=== PATIENT | female | born 1940 | race Caucasian/White ===

== ENCOUNTER 2018-02-03 15:19 | Inpatient (IN) | payer MEDICARE, BC ==
[2018-02-03] MEDS: HYDROCODONE/APAP (5/325) TAB PO (19:10)
[2018-02-03 20:16] LABS: ADD MAN DIFF? NO
[2018-02-03] MEDS: SOD CHLORIDE 0.9% 500 ML IV (20:16)
[2018-02-03] MEDS: morphine 4 MG/ML VIAL IV (20:16)
[2018-02-03 20:19] LABS: WHITE BLOOD COUNT 12.6 10^3/ul (4.8-10.8)
[2018-02-03 20:19] LABS: BASOPHIL # 0.1 10^3/ul (0.0-0.1); BASOPHILS % 0.4 % (0.0-2.0); EOSINOPHILS # 0.4 10^3/ul (0.0-0.5); EOSINOPHILS % 3.2 % (0.0-7.0); HEMATOCRIT 36.5 % (37.0-47.0); HEMOGLOBIN 12.6 g/dl (12.0-16.0); LYMPHOCYTES # 0.7 10^3/ul (0.8-2.9); LYMPHOCYTES % 5.2 % (15.0-51.0); MEAN CORPUSCULAR HEMOGLOBIN 32.4 pg (29.0-33.0); MEAN CORPUSCULAR HGB CONC 34.5 g/dl (32.0-37.0); MEAN CORPUSCULAR VOLUME 93.8 fl (82.0-101.0); MEAN PLATELET VOLUME 9.6 fl (7.4-10.4); MONOCYTE # 0.7 10^3/ul (0.3-0.9); MONOCYTES % 5.2 % (0.0-11.0); NEUTROPHIL # 10.8 10^3/ul (1.6-7.5); NEUTROPHILS % 85.6 % (39.0-77.0); PLATELET COUNT 323 10^3/UL (140-415); RED BLOOD COUNT 3.89 10^6/ul (4.20-5.40); RED CELL DISTRIBUTION WIDTH 13.4 % (11.5-14.5)
[2018-02-03] MEDS ORDERED: ACETAMINOPHEN 325 MG TAB PO (20:30)
[2018-02-03] MEDS ORDERED: ONDANSETRON 4 MG INJ IV ×2 (20:30→22:00)
[2018-02-03 20:39] LABS: ANION GAP 16 (8-16); BLOOD UREA NITROGEN 21 mg/dl (7-20); CALCIUM 9.7 mg/dl (8.4-10.2); CARBON DIOXIDE 27 mmol/L (21-31); CHLORIDE 95 mmol/L (97-110); CREATININE 0.52 mg/dl (0.44-1.00); GLUCOSE 110 mg/dl (70-220); POTASSIUM 3.8 mmol/L (3.5-5.1); SODIUM 134 mmol/L (135-144)
[2018-02-03 20:41] LABS: INR 1.05; PROTIME 13.8 Sec (11.9-14.9); PT RATIO 1.1
[2018-02-03 20:59] LABS: TROPONIN-I < 0.012 ng/ml (0.00-0.12)
[2018-02-03] MEDS ORDERED: DOXYCYCLINE 100 MG TAB PO (21:30)
[2018-02-03] MEDS: DIPHTH/TET/ACEL PERTUSS (ADULT) 0.5 ML VIAL IM* (21:51)
[2018-02-03] MEDS: DOXYCYCLINE 100 MG TAB PO (21:58)
[2018-02-03] MEDS ORDERED: BISACODYL (EC) 5 MG TAB PO (22:00)
[2018-02-03] MEDS ORDERED: morphine 2 MG INJ IV (22:00)
[2018-02-03] MEDS ORDERED: NACL 0.9% 3 ML SYG IV (22:00)
[2018-02-03] MEDS: HYDROCODONE/APAP (10/325) TAB PO (22:02)
[2018-02-03 22:07] LABS: ADD UMIC NO; UR ASCORBIC ACID 40 mg/dL (NEGATIVE); UR BILIRUBIN (Dip) NEGATIVE (NEGATIVE); UR BLOOD (Dip) NEGATIVE (NEGATIVE); UR CLARITY CLEAR (CLEAR); UR COLOR STRAW (YELLOW); UR GLUCOSE (Dip) 1+ mg/dL (NEGATIVE); UR KETONES (Dip) TRACE mg/dL (NEGATIVE); UR LEUKOCYTE ESTERASE (Dip) NEGATIVE Leu/ul (NEGATIVE); UR NITRITE (Dip) NEGATIVE (NEGATIVE); UR SPECIFIC GRAVITY (Dip) 1.011 (1.003-1.030); UR TOTAL PROTEIN (Dip) NEGATIVE (NEGATIVE); UR UROBILINOGEN (Dip) NEGATIVE (NEGATIVE)
[2018-02-03] MEDS: GABAPENTIN 100 MG CAP PO (23:45)
[2018-02-03] MEDS: DIAZEPAM 5 MG TAB PO (23:45)
[2018-02-04] MEDS: ACETAMINOPHEN 325 MG TAB PO (03:42)
[2018-02-04] MEDS: DIPHENHYDRAMINE 25 MG CAP PO (03:42)
[2018-02-04 05:20] LABS: ADD MAN DIFF? NO
[2018-02-04 05:25] LABS: BASOPHILS % 0.5 % (0.0-2.0); EOSINOPHILS # 1.1 10^3/ul (0.0-0.5); HEMATOCRIT 31.7 % (37.0-47.0); HEMOGLOBIN 10.8 g/dl (12.0-16.0); LYMPHOCYTES % 12.7 % (15.0-51.0); MEAN CORPUSCULAR HEMOGLOBIN 32.1 pg (29.0-33.0); MEAN CORPUSCULAR HGB CONC 34.1 g/dl (32.0-37.0); MEAN CORPUSCULAR VOLUME 94.3 fl (82.0-101.0); MEAN PLATELET VOLUME 9.9 fl (7.4-10.4); MONOCYTE # 0.6 10^3/ul (0.3-0.9); NEUTROPHIL # 5.2 10^3/ul (1.6-7.5); NEUTROPHILS % 65.5 % (39.0-77.0); PLATELET COUNT 301 10^3/UL (140-415); RED BLOOD COUNT 3.36 10^6/ul (4.20-5.40); RED CELL DISTRIBUTION WIDTH 13.3 % (11.5-14.5)
[2018-02-04 05:43] LABS: HEMOGLOBIN A1C 5.5 % (0-5.9)
[2018-02-04 05:44] LABS: ALANINE AMINOTRANSFERASE 30 IU/L (13-69); ALBUMIN 3.2 g/dl (3.3-4.9); ALBUMIN/GLOBULIN RATIO 1.14; ALKALINE PHOSPHATASE 47 IU/L (42-121); ANION GAP 11 (8-16); ASPARTATE AMINO TRANSFERASE 22 IU/L (15-46); BILIRUBIN,INDIRECT 0.2 mg/dl (0-1.1); BILIRUBIN,TOTAL 0.2 mg/dl (0.2-1.3); BLOOD UREA NITROGEN 17 mg/dl (7-20); CALCIUM 8.9 mg/dl (8.4-10.2); CARBON DIOXIDE 27 mmol/L (21-31); CHLORIDE 100 mmol/L (97-110); CHOL/HDL RATIO 2.2 RATIO; CHOLESTEROL 131 mg/dl (100-200); CREATININE 0.48 mg/dl (0.44-1.00); GLUCOSE 93 mg/dl (70-220); HDL CHOLESTEROL 57 mg/dl (33-92); LDL CHOLESTEROL,CALCULATED 65 mg/dl; POTASSIUM 3.7 mmol/L (3.5-5.1); SODIUM 134 mmol/L (135-144); TRIGLYCERIDES 47 mg/dl (0-149)
[2018-02-04 05:57] LABS: FREE THYROXINE INDEX (Calc) 2.07 ug/ml (0.65-3.89); T3 UPTAKE 38.3 % (23.5-40.5); T4 (THYROXINE) 5.4 ug/dl (5.5-11.0)
[2018-02-04] MEDS: PANTOPRAZOLE (EC) 40 MG TAB PO (06:24)
[2018-02-04] MEDS: LORATADINE 10 MG TAB PO ×2 (09:00→13:33)
[2018-02-04] MEDS: traMADol 50 MG TAB PO ×3 (09:00→21:00)
[2018-02-04] MEDS: HYDROCODONE/APAP (5/325) TAB PO ×3 (09:11→22:56)
[2018-02-04] MEDS: PROCHLORPERAZINE 5 MG TAB PO ×4 (09:12→22:02)
[2018-02-04] MEDS: MAGNESIUM OXIDE 400 MG TAB PO ×2 (09:12→22:03)
[2018-02-04] MEDS: FERROUS SULFATE (EC) 325 MG TAB PO ×2 (09:12→22:01)
[2018-02-04] MEDS: SALMETEROL/FLUTICASONE 250/50 INHA INH (09:13)
[2018-02-04] MEDS: METOPROLOL (XL) 25 MG TAB PO ×2 (09:13→18:50)
[2018-02-04] MEDS: LISINOPRIL 10 MG TAB PO ×2 (09:13→18:49)
[2018-02-04] MEDS: COLLAGENASE 30 GM TUBE TOP (09:14)
[2018-02-04] MEDS: metroNIDAZOLE 0.75% 45 GM GEL TOP (09:14)
[2018-02-04] MEDS: DICLOFENAC SODIUM 1% GEL 100 GM TUBE TP (09:14)
[2018-02-04] MEDS: IPRATROPIUM (HFA) 12.9 GM INHALER INH ×2 (09:14→22:03)
[2018-02-04] MEDS: DOCUSATE SODIUM 100 MG CAP PO ×2 (09:21→18:52)
[2018-02-04] MEDS: GABAPENTIN 100 MG CAP PO ×3 (16:14→23:56)
[2018-02-04] MEDS: ENOXAPARIN 40 MG/0.4 ML SYG SC (16:15)
[2018-02-04] MEDS ORDERED: L ACIDOPHIL/B LACTIS/B LONGUM CAPSULE PO (17:00)
[2018-02-04] MEDS: CALCITONIN SALMON 3.7 ML NASAL SPRAY NASAL (21:00)
[2018-02-04] MEDS: PREGABALIN 25 MG CAP PO (21:00)
[2018-02-04] MEDS: MONTELUKAST 10 MG TAB PO (22:01)
[2018-02-04] MEDS: BETHANECHOL 25 MG TAB PO (22:02)
[2018-02-04] MEDS: CALCIUM/VITAMIN D (500/200) TAB PO (22:02)
[2018-02-04] MEDS: RALOXIFENE 60 MG TAB PO (22:02)
[2018-02-04] MEDS: MOMETASONE 0.24 GM INHALER INH (22:03)
[2018-02-04] MEDS: DEMECLOCYCLINE 150 MG TAB PO (23:56)
[2018-02-04] MEDS: DIAZEPAM 5 MG TAB PO (23:57)
[2018-02-05] MEDS ORDERED: GABAPENTIN 100 MG CAP PO
[2018-02-05 05:15] LABS: ANION GAP 11 (8-16); BLOOD UREA NITROGEN 15 mg/dl (7-20); CALCIUM 8.9 mg/dl (8.4-10.2); CARBON DIOXIDE 28 mmol/L (21-31); CHLORIDE 97 mmol/L (97-110); CREATININE 0.54 mg/dl (0.44-1.00); GLUCOSE 92 mg/dl (70-220); MAGNESIUM 1.6 mg/dl (1.7-2.5); PHOSPHORUS 2.8 mg/dl (2.5-4.9); POTASSIUM 3.9 mmol/L (3.5-5.1); SODIUM 132 mmol/L (135-144)
[2018-02-05] MEDS: LEVOFLOXACIN 500 MG TAB PO (06:00)
[2018-02-05] MEDS: HYDROCODONE/APAP (5/325) TAB PO ×3 (06:09→23:53)
[2018-02-05] MEDS: PANTOPRAZOLE (EC) 40 MG TAB PO (06:09)
[2018-02-05] MEDS: COLLAGENASE 30 GM TUBE TOP (09:00)
[2018-02-05] MEDS: traMADol 50 MG TAB PO ×3 (09:00→20:45)
[2018-02-05] MEDS: metroNIDAZOLE 0.75% 45 GM GEL TOP (09:00)
[2018-02-05] MEDS: DICLOFENAC SODIUM 1% GEL 100 GM TUBE TP (09:00)
[2018-02-05] MEDS: METOPROLOL (XL) 25 MG TAB PO ×2 (09:44→17:27)
[2018-02-05] MEDS: LISINOPRIL 10 MG TAB PO ×2 (09:45→17:28)
[2018-02-05] MEDS: LORATADINE 10 MG TAB PO (09:45)
[2018-02-05] MEDS: SALMETEROL/FLUTICASONE 250/50 INHA INH (09:45)
[2018-02-05] MEDS: IPRATROPIUM (HFA) 12.9 GM INHALER INH ×2 (09:45→20:42)
[2018-02-05] MEDS: LACTOBACILLUS RHAMNOSUS CAP PO (09:46)
[2018-02-05] MEDS: DEMECLOCYCLINE 150 MG TAB PO ×2 (09:46→20:48)
[2018-02-05] MEDS: PROCHLORPERAZINE 5 MG TAB PO ×4 (09:46→20:43)
[2018-02-05] MEDS: ASCORBIC ACID 500 MG TAB PO (09:47)
[2018-02-05] MEDS: MAGNESIUM OXIDE 400 MG TAB PO ×2 (09:47→19:08)
[2018-02-05] MEDS: FERROUS SULFATE (EC) 325 MG TAB PO ×2 (09:47→19:08)
[2018-02-05] MEDS: CALCIUM/VITAMIN D (500/200) TAB PO ×2 (09:47→19:08)
[2018-02-05] MEDS: BETHANECHOL 25 MG TAB PO ×3 (09:47→20:42)
[2018-02-05] MEDS: GABAPENTIN 100 MG CAP PO ×5 (09:47→23:52)
[2018-02-05] MEDS: ENOXAPARIN 40 MG/0.4 ML SYG SC (10:22)
[2018-02-05] MEDS: SODIUM CHLORIDE 1 GM TAB PO ×2 (13:50→20:42)
[2018-02-05] MEDS ORDERED: NEOMYC/POLYMYX/BACIT 0.9 GM OINT (13:52)
[2018-02-05] MEDS ORDERED: ESTRADIOL 0.05 MG/24 HR PATCH TRANSDERM (18:00)
[2018-02-05] MEDS: DOCUSATE SODIUM 100 MG CAP PO (19:08)
[2018-02-05] MEDS: MAGNESIUM SULFATE 2 GM/50 ML 50 ML IVPB (19:09)
[2018-02-05] MEDS: MOMETASONE 0.24 GM INHALER INH (20:42)
[2018-02-05] MEDS: MONTELUKAST 10 MG TAB PO (20:43)
[2018-02-05] MEDS: PREGABALIN 25 MG CAP PO (20:45)
[2018-02-05] MEDS: MEDIHONEY TOP (21:30)
[2018-02-05] MEDS: CALCITONIN SALMON 3.7 ML NASAL SPRAY NASAL (21:40)
[2018-02-05] MEDS: RALOXIFENE 60 MG TAB PO (21:59)
[2018-02-05] MEDS: DIAZEPAM 5 MG TAB PO (23:52)
[2018-02-06] MEDS: LEVOFLOXACIN 500 MG TAB PO ×2 (06:00→10:22)
[2018-02-06 06:40] LABS: ANION GAP 10 (8-16); BLOOD UREA NITROGEN 18 mg/dl (7-20); CALCIUM 8.8 mg/dl (8.4-10.2); CARBON DIOXIDE 29 mmol/L (21-31); CHLORIDE 101 mmol/L (97-110); CREATININE 0.57 mg/dl (0.44-1.00); GLUCOSE 83 mg/dl (70-220); MAGNESIUM 2.1 mg/dl (1.7-2.5); PHOSPHORUS 3.1 mg/dl (2.5-4.9); SODIUM 136 mmol/L (135-144)
[2018-02-06] MEDS: PANTOPRAZOLE (EC) 40 MG TAB PO (07:34)
[2018-02-06] MEDS: LACTOBACILLUS RHAMNOSUS CAP PO (08:36)
[2018-02-06] MEDS: GABAPENTIN 100 MG CAP PO ×4 (08:36→21:22)
[2018-02-06] MEDS: ASCORBIC ACID 500 MG TAB PO (08:36)
[2018-02-06] MEDS: FERROUS SULFATE (EC) 325 MG TAB PO ×2 (08:36→21:23)
[2018-02-06] MEDS: BETHANECHOL 25 MG TAB PO ×3 (08:37→21:22)
[2018-02-06] MEDS: CALCIUM/VITAMIN D (500/200) TAB PO ×2 (08:37→18:11)
[2018-02-06] MEDS: PROCHLORPERAZINE 5 MG TAB PO ×4 (08:37→21:23)
[2018-02-06] MEDS: SODIUM CHLORIDE 1 GM TAB PO ×3 (08:37→21:22)
[2018-02-06] MEDS: MAGNESIUM OXIDE 400 MG TAB PO ×2 (08:37→18:11)
[2018-02-06] MEDS: LORATADINE 10 MG TAB PO (08:37)
[2018-02-06] MEDS: METOPROLOL (XL) 25 MG TAB PO ×2 (08:38→18:12)
[2018-02-06] MEDS: SALMETEROL/FLUTICASONE 250/50 INHA INH (08:38)
[2018-02-06] MEDS: LISINOPRIL 10 MG TAB PO ×2 (08:38→18:12)
[2018-02-06] MEDS: IPRATROPIUM (HFA) 12.9 GM INHALER INH ×2 (08:40→21:23)
[2018-02-06] MEDS: DEMECLOCYCLINE 150 MG TAB PO ×2 (08:46→21:21)
[2018-02-06] MEDS: COLLAGENASE 30 GM TUBE TOP (09:00)
[2018-02-06] MEDS: metroNIDAZOLE 0.75% 45 GM GEL TOP (09:00)
[2018-02-06] MEDS: traMADol 50 MG TAB PO ×3 (09:00→21:00)
[2018-02-06] MEDS: MEDIHONEY TOP (09:00)
[2018-02-06] MEDS: DICLOFENAC SODIUM 1% GEL 100 GM TUBE TP (09:00)
[2018-02-06] MEDS: ENOXAPARIN 40 MG/0.4 ML SYG SC (09:38)
[2018-02-06] MEDS: HYDROCODONE/APAP (5/325) TAB PO (14:40)
[2018-02-06] MEDS: DOCUSATE SODIUM 100 MG CAP PO (18:11)
[2018-02-06] MEDS: PREGABALIN 25 MG CAP PO (21:00)
[2018-02-06] MEDS: ESTRADIOL TRANSDERM (21:18)
[2018-02-06] MEDS: RALOXIFENE 60 MG TAB PO (21:22)
[2018-02-06] MEDS: MONTELUKAST 10 MG TAB PO (21:22)
[2018-02-06] MEDS: MOMETASONE 0.24 GM INHALER INH (21:23)
[2018-02-07] MEDS: DIAZEPAM 5 MG TAB PO (00:10)
[2018-02-07] MEDS: GABAPENTIN 100 MG CAP PO ×5 (00:10→21:03)
[2018-02-07] MEDS: CALCITONIN SALMON 3.7 ML NASAL SPRAY NASAL ×2 (00:10→21:06)
[2018-02-07] MEDS: HYDROCODONE/APAP (5/325) TAB PO ×3 (00:18→23:27)
[2018-02-07] MEDS: ACETAMINOPHEN 325 MG TAB PO (01:18)
[2018-02-07] MEDS: DIPHENHYDRAMINE 25 MG CAP PO (01:19)
[2018-02-07] MEDS: PANTOPRAZOLE (EC) 40 MG TAB PO (05:17)
[2018-02-07] MEDS: COLLAGENASE 30 GM TUBE TOP ×3 (09:00→15:10)
[2018-02-07] MEDS: DICLOFENAC SODIUM 1% GEL 100 GM TUBE TP ×3 (09:00→15:10)
[2018-02-07] MEDS: traMADol 50 MG TAB PO ×3 (09:00→21:00)
[2018-02-07] MEDS: LISINOPRIL 10 MG TAB PO ×2 (09:12→18:05)
[2018-02-07] MEDS: METOPROLOL (XL) 25 MG TAB PO ×2 (09:13→18:05)
[2018-02-07] MEDS: LACTOBACILLUS RHAMNOSUS CAP PO (09:14)
[2018-02-07] MEDS: ASCORBIC ACID 500 MG TAB PO ×2 (09:14→21:05)
[2018-02-07] MEDS: PROCHLORPERAZINE 5 MG TAB PO ×4 (09:14→21:05)
[2018-02-07] MEDS: LORATADINE 10 MG TAB PO (09:14)
[2018-02-07] MEDS: SODIUM CHLORIDE 1 GM TAB PO ×3 (09:14→18:04)
[2018-02-07] MEDS: FERROUS SULFATE (EC) 325 MG TAB PO ×2 (09:15→18:03)
[2018-02-07] MEDS: MAGNESIUM OXIDE 400 MG TAB PO ×2 (09:15→18:02)
[2018-02-07] MEDS: DEMECLOCYCLINE 150 MG TAB PO ×2 (09:15→21:04)
[2018-02-07] MEDS: BETHANECHOL 25 MG TAB PO ×3 (09:16→21:04)
[2018-02-07] MEDS: CALCIUM/VITAMIN D (500/200) TAB PO ×2 (09:16→18:04)
[2018-02-07] MEDS: IPRATROPIUM (HFA) 12.9 GM INHALER INH ×3 (09:17→21:06)
[2018-02-07] MEDS: SALMETEROL/FLUTICASONE 250/50 INHA INH (09:17)
[2018-02-07] MEDS: ENOXAPARIN 40 MG/0.4 ML SYG SC (09:21)
[2018-02-07] MEDS: DOCUSATE SODIUM 100 MG CAP PO ×2 (09:45→18:04)
[2018-02-07] MEDS: LEVOFLOXACIN 500 MG TAB PO (10:41)
[2018-02-07] MEDS: MEDIHONEY TOP (13:50)
[2018-02-07] MEDS: metroNIDAZOLE 0.75% 45 GM GEL TOP (13:51)
[2018-02-07] MEDS: PREGABALIN 25 MG CAP PO (21:00)
[2018-02-07] MEDS: RALOXIFENE 60 MG TAB PO (21:04)
[2018-02-07] MEDS: MOMETASONE 0.24 GM INHALER INH (21:06)
[2018-02-07] MEDS: MONTELUKAST 10 MG TAB PO (21:08)
[2018-02-08] MEDS: DIAZEPAM 5 MG TAB PO ×2 (00:07→23:38)
[2018-02-08] MEDS: GABAPENTIN 100 MG CAP PO ×6 (00:08→23:37)
[2018-02-08] MEDS: DIPHENHYDRAMINE 25 MG CAP PO (03:42)
[2018-02-08] MEDS: ACETAMINOPHEN 325 MG TAB PO ×2 (03:42→21:28)
[2018-02-08] MEDS: PANTOPRAZOLE (EC) 40 MG TAB PO (06:24)
[2018-02-08] MEDS: LEVOFLOXACIN 500 MG TAB PO (06:24)
[2018-02-08] MEDS: IPRATROPIUM (HFA) 12.9 GM INHALER INH ×3 (06:24→21:29)
[2018-02-08] MEDS ORDERED: ALBUMIN HUMAN 25% 100 ML INJ (07:00)
[2018-02-08] MEDS: MAGNESIUM OXIDE 400 MG TAB PO ×2 (09:00→18:48)
[2018-02-08] MEDS: ENOXAPARIN 40 MG/0.4 ML SYG SC (09:00)
[2018-02-08] MEDS: FERROUS SULFATE (EC) 325 MG TAB PO ×2 (09:00→18:47)
[2018-02-08] MEDS: metroNIDAZOLE 0.75% 45 GM GEL TOP (09:00)
[2018-02-08] MEDS: SODIUM CHLORIDE 1 GM TAB PO ×3 (09:00→18:47)
[2018-02-08] MEDS: ASCORBIC ACID 500 MG TAB PO ×2 (09:00→18:47)
[2018-02-08] MEDS: DICLOFENAC SODIUM 1% GEL 100 GM TUBE TP (09:00)
[2018-02-08] MEDS: CALCIUM/VITAMIN D (500/200) TAB PO ×2 (09:00→18:48)
[2018-02-08] MEDS: traMADol 50 MG TAB PO ×3 (09:00→21:00)
[2018-02-08] MEDS: LACTOBACILLUS RHAMNOSUS CAP PO (09:00)
[2018-02-08] MEDS: COLLAGENASE 30 GM TUBE TOP (09:00)
[2018-02-08] MEDS: SALMETEROL/FLUTICASONE 250/50 INHA INH (09:01)
[2018-02-08] MEDS: LISINOPRIL 10 MG TAB PO ×2 (09:02→18:09)
[2018-02-08] MEDS: METOPROLOL (XL) 25 MG TAB PO ×2 (09:02→18:09)
[2018-02-08] MEDS: LORATADINE 10 MG TAB PO (09:03)
[2018-02-08] MEDS: BETHANECHOL 25 MG TAB PO ×3 (09:04→21:04)
[2018-02-08] MEDS: DEMECLOCYCLINE 150 MG TAB PO ×2 (09:05→21:02)
[2018-02-08] MEDS: PROCHLORPERAZINE 5 MG TAB PO ×4 (09:08→21:03)
[2018-02-08] MEDS: MEDIHONEY TOP (09:15)
[2018-02-08 09:22] LABS: ADD MAN DIFF? NO
[2018-02-08 09:29] LABS: WHITE BLOOD COUNT 6.2 10^3/ul (4.8-10.8)
[2018-02-08 09:29] LABS: BASOPHIL # 0.1 10^3/ul (0.0-0.1); EOSINOPHILS % 15.9 % (0.0-7.0); HEMATOCRIT 34.2 % (37.0-47.0); HEMOGLOBIN 11.5 g/dl (12.0-16.0); LYMPHOCYTES % 16.7 % (15.0-51.0); MEAN CORPUSCULAR HEMOGLOBIN 32.1 pg (29.0-33.0); MEAN CORPUSCULAR HGB CONC 33.6 g/dl (32.0-37.0); MEAN CORPUSCULAR VOLUME 95.5 fl (82.0-101.0); MEAN PLATELET VOLUME 9.4 fl (7.4-10.4); MONOCYTE # 0.5 10^3/ul (0.3-0.9); MONOCYTES % 8.7 % (0.0-11.0); NEUTROPHIL # 3.5 10^3/ul (1.6-7.5); NEUTROPHILS % 56.9 % (39.0-77.0); PLATELET COUNT 385 10^3/UL (140-415); RED BLOOD COUNT 3.58 10^6/ul (4.20-5.40); RED CELL DISTRIBUTION WIDTH 13.6 % (11.5-14.5)
[2018-02-08 09:42] LABS: ANION GAP 11 (8-16); BLOOD UREA NITROGEN 24 mg/dl (7-20); CALCIUM 8.7 mg/dl (8.4-10.2); CARBON DIOXIDE 29 mmol/L (21-31); CHLORIDE 105 mmol/L (97-110); CREATININE 0.51 mg/dl (0.44-1.00); GLUCOSE 89 mg/dl (70-220); POTASSIUM 4.3 mmol/L (3.5-5.1); SODIUM 141 mmol/L (135-144)
[2018-02-08] MEDS ORDERED: morphine SULFATE/PF (10 MG/10 ML) INJ (11:16)
[2018-02-08] MEDS ORDERED: MIDAZOLAM 1 MG/ML 2 ML INJ (11:16)
[2018-02-08] MEDS ORDERED: PROPOFOL 20 ML (11:17)
[2018-02-08] MEDS ORDERED: FENTAnyl 50 MCG/ML VIAL (11:17)
[2018-02-08] MEDS ORDERED: SUCCINYLCHOLINE CHLORIDE 100 MG/5 ML SYG IV (11:18)
[2018-02-08] MEDS ORDERED: LIDOCAINE 2% (SDV) 5 ML INJ (11:18)
[2018-02-08] MEDS ORDERED: ROCURONIUM 50 MG INJ (11:18)
[2018-02-08] MEDS ORDERED: ACETAMINOPHEN 1000MG/100ML IV 100 ML (11:18)
[2018-02-08] MEDS ORDERED: CEFAZOLIN 1 GM INJ (11:21)
[2018-02-08] MEDS: POLYMYXIN/BACITRACIN 1L IRRIG (11:36)
[2018-02-08] MEDS ORDERED: CEFAZOLIN 1 GM/50 ML (PMX) 50 ML IVPB (13:00)
[2018-02-08] MEDS ORDERED: NACL 0.9% 3 ML SYG IV (13:00)
[2018-02-08] MEDS ORDERED: morphine 2 MG INJ IV (13:00)
[2018-02-08] MEDS ORDERED: HYDROCODONE/APAP (5/325) TAB PO (13:00)
[2018-02-08] MEDS ORDERED: METOPROLOL 5 MG INJ (13:13)
[2018-02-08] MEDS ORDERED: METOCLOPRAMIDE 10 MG INJ IV (13:30)
[2018-02-08] MEDS ORDERED: MEPERIDINE 25 MG INJ IV (13:30)
[2018-02-08] MEDS ORDERED: FENTAnyl 50 MCG/ML VIAL IV ×2 (13:30)
[2018-02-08] MEDS ORDERED: LABETALOL HCL 20MG INJ IV (13:30)
[2018-02-08] MEDS ORDERED: HYDROmorphONE (0.2 MG/ML) 10ML SYG IV ×3 (13:30)
[2018-02-08] MEDS ORDERED: ONDANSETRON 4 MG INJ IV (13:30)
[2018-02-08] MEDS ORDERED: hydrALAzine 20 MG INJ IV (13:30)
[2018-02-08] MEDS ORDERED: DIPHENHYDRAMINE 50 MG INJ IV (13:30)
[2018-02-08] MEDS: METOPROLOL 5 MG INJ IV (13:35)
[2018-02-08] MEDS: DEXTROSE 5%-0.45% NACL 1,000 ML IV (14:31)
[2018-02-08 14:38] LABS: HEMATOCRIT 28.7 % (37.0-47.0); HEMOGLOBIN 9.6 g/dl (12.0-16.0)
[2018-02-08 14:55] LABS: ANION GAP 16 (8-16); BLOOD UREA NITROGEN 22 mg/dl (7-20); CALCIUM 11.6 mg/dl (8.4-10.2); CARBON DIOXIDE 26 mmol/L (21-31); CHLORIDE 105 mmol/L (97-110); CREATININE 0.55 mg/dl (0.44-1.00); GLUCOSE 90 mg/dl (70-220); POTASSIUM 4.3 mmol/L (3.5-5.1); SODIUM 143 mmol/L (135-144)
[2018-02-08] MEDS: RALOXIFENE 60 MG TAB PO (18:09)
[2018-02-08] MEDS: DOCUSATE SODIUM 100 MG CAP PO (18:10)
[2018-02-08] MEDS: CEFAZOLIN 1 GM/50 ML (PMX) 50 ML IVPB (20:13)
[2018-02-08] MEDS: hydrALAzine 20 MG INJ IV (20:16)
[2018-02-08] MEDS: PREGABALIN 25 MG CAP PO (21:00)
[2018-02-08] MEDS: MOMETASONE 0.24 GM INHALER INH (21:02)
[2018-02-08] MEDS: MONTELUKAST 10 MG TAB PO (21:02)
[2018-02-08] MEDS: CALCITONIN SALMON 3.7 ML NASAL SPRAY NASAL (21:02)
[2018-02-09] MEDS: DEXTROSE 5%-0.45% NACL 1,000 ML IV ×2 (03:00→04:38)
[2018-02-09] MEDS: CEFAZOLIN 1 GM/50 ML (PMX) 50 ML IVPB ×2 (03:13→11:12)
[2018-02-09] MEDS: LEVOFLOXACIN 500 MG TAB PO (06:25)
[2018-02-09] MEDS: PANTOPRAZOLE (EC) 40 MG TAB PO (06:25)
[2018-02-09] MEDS: IPRATROPIUM (HFA) 12.9 GM INHALER INH ×3 (06:25→21:52)
[2018-02-09] MEDS: traMADol 50 MG TAB PO ×3 (08:06→21:00)
[2018-02-09] MEDS: COLLAGENASE 30 GM TUBE TOP (08:07)
[2018-02-09] MEDS: metroNIDAZOLE 0.75% 45 GM GEL TOP (08:07)
[2018-02-09] MEDS: DICLOFENAC SODIUM 1% GEL 100 GM TUBE TP (08:07)
[2018-02-09] MEDS: LISINOPRIL 10 MG TAB PO ×2 (08:23→17:33)
[2018-02-09] MEDS: FERROUS SULFATE (EC) 325 MG TAB PO ×2 (08:23→17:32)
[2018-02-09] MEDS: ASCORBIC ACID 500 MG TAB PO ×2 (08:23→17:32)
[2018-02-09] MEDS: LACTOBACILLUS RHAMNOSUS CAP PO (08:24)
[2018-02-09] MEDS: CALCIUM/VITAMIN D (500/200) TAB PO ×2 (08:24→17:33)
[2018-02-09] MEDS: SODIUM CHLORIDE 1 GM TAB PO ×3 (08:25→17:33)
[2018-02-09] MEDS: BETHANECHOL 25 MG TAB PO ×3 (08:25→21:51)
[2018-02-09] MEDS: GABAPENTIN 100 MG CAP PO ×4 (08:25→21:50)
[2018-02-09] MEDS: DEMECLOCYCLINE 150 MG TAB PO ×2 (08:25→21:48)
[2018-02-09] MEDS: LORATADINE 10 MG TAB PO (08:25)
[2018-02-09] MEDS: MAGNESIUM OXIDE 400 MG TAB PO ×2 (08:26→17:33)
[2018-02-09] MEDS: SALMETEROL/FLUTICASONE 250/50 INHA INH (08:26)
[2018-02-09] MEDS: METOPROLOL (XL) 25 MG TAB PO ×2 (08:26→17:34)
[2018-02-09] MEDS: MEDIHONEY TOP (08:27)
[2018-02-09] MEDS: ACETAMINOPHEN 325 MG TAB PO ×2 (08:27→17:39)
[2018-02-09] MEDS: PROCHLORPERAZINE 5 MG TAB PO ×4 (08:29→21:48)
[2018-02-09] MEDS: ENOXAPARIN 40 MG/0.4 ML SYG SC (08:30)
[2018-02-09 11:52] LABS: ADD MAN DIFF? NO
[2018-02-09 11:55] LABS: BASOPHILS % 0.4 % (0.0-2.0); EOSINOPHILS # 0.4 10^3/ul (0.0-0.5); EOSINOPHILS % 3.9 % (0.0-7.0); HEMATOCRIT 28.4 % (37.0-47.0); HEMOGLOBIN 9.8 g/dl (12.0-16.0); LYMPHOCYTES # 0.8 10^3/ul (0.8-2.9); MEAN CORPUSCULAR HGB CONC 34.5 g/dl (32.0-37.0); MEAN CORPUSCULAR VOLUME 92.8 fl (82.0-101.0); MEAN PLATELET VOLUME 9.4 fl (7.4-10.4); MONOCYTE # 0.9 10^3/ul (0.3-0.9); MONOCYTES % 8.9 % (0.0-11.0); NEUTROPHIL # 8.2 10^3/ul (1.6-7.5); NEUTROPHILS % 78.2 % (39.0-77.0); PLATELET COUNT 345 10^3/UL (140-415); RED BLOOD COUNT 3.06 10^6/ul (4.20-5.40); RED CELL DISTRIBUTION WIDTH 13.5 % (11.5-14.5)
[2018-02-09 11:55] LABS: WHITE BLOOD COUNT 10.4 10^3/ul (4.8-10.8)
[2018-02-09] MEDS: DOCUSATE SODIUM 100 MG CAP PO (17:31)
[2018-02-09] MEDS: RALOXIFENE 60 MG TAB PO (17:34)
[2018-02-09] MEDS: PREGABALIN 25 MG CAP PO (21:00)
[2018-02-09] MEDS: MOMETASONE 0.24 GM INHALER INH (21:47)
[2018-02-09] MEDS: CALCITONIN SALMON 3.7 ML NASAL SPRAY NASAL (21:48)
[2018-02-09] MEDS: ATORVASTATIN 40 MG TAB PO (21:49)
[2018-02-09] MEDS: ESTRADIOL TRANSDERM (21:51)
[2018-02-09] MEDS: MONTELUKAST 10 MG TAB PO (21:52)
[2018-02-10] MEDS: GABAPENTIN 100 MG CAP PO ×5 (00:01→21:34)
[2018-02-10] MEDS: DIAZEPAM 5 MG TAB PO (00:02)
[2018-02-10] MEDS: PANTOPRAZOLE (EC) 40 MG TAB PO (06:28)
[2018-02-10] MEDS: LEVOFLOXACIN 500 MG TAB PO (06:28)
[2018-02-10] MEDS: IPRATROPIUM (HFA) 12.9 GM INHALER INH ×3 (06:28→21:35)
[2018-02-10] MEDS: DEMECLOCYCLINE 150 MG TAB PO ×2 (08:19→18:32)
[2018-02-10] MEDS: LACTOBACILLUS RHAMNOSUS CAP PO (08:19)
[2018-02-10] MEDS: ASCORBIC ACID 500 MG TAB PO ×2 (08:20→21:35)
[2018-02-10] MEDS: ASPIRIN 81 MG TAB PO (08:20)
[2018-02-10] MEDS: FERROUS SULFATE (EC) 325 MG TAB PO ×2 (08:20→18:32)
[2018-02-10] MEDS: MAGNESIUM OXIDE 400 MG TAB PO ×2 (08:20→18:32)
[2018-02-10] MEDS: CALCIUM/VITAMIN D (500/200) TAB PO ×2 (08:20→18:33)
[2018-02-10] MEDS: BETHANECHOL 25 MG TAB PO ×3 (08:21→21:35)
[2018-02-10] MEDS: LORATADINE 10 MG TAB PO (08:21)
[2018-02-10] MEDS: SODIUM CHLORIDE 1 GM TAB PO ×3 (08:21→18:23)
[2018-02-10] MEDS: METOPROLOL (XL) 25 MG TAB PO ×2 (08:21→18:19)
[2018-02-10] MEDS: LISINOPRIL 10 MG TAB PO ×2 (08:22→18:19)
[2018-02-10] MEDS: SALMETEROL/FLUTICASONE 250/50 INHA INH (08:22)
[2018-02-10] MEDS: COLLAGENASE 30 GM TUBE TOP (08:23)
[2018-02-10] MEDS: PROCHLORPERAZINE 5 MG TAB PO ×4 (08:23→21:33)
[2018-02-10] MEDS: DICLOFENAC SODIUM 1% GEL 100 GM TUBE TP (08:23)
[2018-02-10] MEDS: MEDIHONEY TOP (08:23)
[2018-02-10] MEDS: metroNIDAZOLE 0.75% 45 GM GEL TOP (08:23)
[2018-02-10] MEDS: HYDROCODONE/APAP (5/325) TAB PO ×2 (08:24→13:28)
[2018-02-10] MEDS: traMADol 50 MG TAB PO ×3 (08:24→21:00)
[2018-02-10] MEDS: ENOXAPARIN 40 MG/0.4 ML SYG SC (08:27)
[2018-02-10 09:28] LABS: ADD MAN DIFF? NO
[2018-02-10 09:44] LABS: BASOPHILS % 0.3 % (0.0-2.0); EOSINOPHILS # 0.4 10^3/ul (0.0-0.5); EOSINOPHILS % 4.2 % (0.0-7.0); LYMPHOCYTES # 0.9 10^3/ul (0.8-2.9); LYMPHOCYTES % 8.4 % (15.0-51.0); MEAN CORPUSCULAR HEMOGLOBIN 31.9 pg (29.0-33.0); MEAN CORPUSCULAR HGB CONC 34.5 g/dl (32.0-37.0); MEAN CORPUSCULAR VOLUME 92.7 fl (82.0-101.0); MEAN PLATELET VOLUME 9.3 fl (7.4-10.4); MONOCYTE # 0.9 10^3/ul (0.3-0.9); MONOCYTES % 8.8 % (0.0-11.0); NEUTROPHILS % 77.2 % (39.0-77.0); PLATELET COUNT 383 10^3/UL (140-415); RED BLOOD COUNT 3.13 10^6/ul (4.20-5.40); RED CELL DISTRIBUTION WIDTH 13.4 % (11.5-14.5)
[2018-02-10 09:44] LABS: WHITE BLOOD COUNT 10.3 10^3/ul (4.8-10.8)
[2018-02-10 10:00] LABS: ANION GAP 15 (8-16); BLOOD UREA NITROGEN 19 mg/dl (7-20); CARBON DIOXIDE 25 mmol/L (21-31); CHLORIDE 99 mmol/L (97-110); CREATININE 0.46 mg/dl (0.44-1.00); GLUCOSE 130 mg/dl (70-220); MAGNESIUM 1.5 mg/dl (1.7-2.5); POTASSIUM 3.8 mmol/L (3.5-5.1); SODIUM 135 mmol/L (135-144)
[2018-02-10] MEDS: MAGNESIUM SULFATE 2 GM/50 ML 50 ML IVPB (13:46)
[2018-02-10] MEDS: DOCUSATE SODIUM 100 MG CAP PO (18:18)
[2018-02-10] MEDS: RALOXIFENE 60 MG TAB PO (18:19)
[2018-02-10] MEDS: CALCITONIN SALMON 3.7 ML NASAL SPRAY NASAL (21:00)
[2018-02-10] MEDS: PREGABALIN 25 MG CAP PO (21:00)
[2018-02-10] MEDS: MOMETASONE 0.24 GM INHALER INH (21:32)
[2018-02-10] MEDS: ATORVASTATIN 40 MG TAB PO (21:33)
[2018-02-10] MEDS: MONTELUKAST 10 MG TAB PO (21:34)
[2018-02-11] MEDS: GABAPENTIN 100 MG CAP PO ×5 (00:14→20:13)
[2018-02-11] MEDS: DIAZEPAM 5 MG TAB PO ×2 (00:15→21:00)
[2018-02-11] MEDS: HYDROCODONE/APAP (5/325) TAB PO ×2 (04:45→10:31)
[2018-02-11] MEDS: LEVOFLOXACIN 500 MG TAB PO (06:34)
[2018-02-11] MEDS: IPRATROPIUM (HFA) 12.9 GM INHALER INH ×3 (06:34→22:00)
[2018-02-11] MEDS: PANTOPRAZOLE (EC) 40 MG TAB PO (06:34)
[2018-02-11] MEDS: traMADol 50 MG TAB PO ×3 (09:00→20:14)
[2018-02-11] MEDS: metroNIDAZOLE 0.75% 45 GM GEL TOP (09:00)
[2018-02-11] MEDS: COLLAGENASE 30 GM TUBE TOP (09:00)
[2018-02-11] MEDS: DICLOFENAC SODIUM 1% GEL 100 GM TUBE TP (09:00)
[2018-02-11] MEDS: ASCORBIC ACID 500 MG TAB PO ×2 (09:13→20:11)
[2018-02-11] MEDS: SALMETEROL/FLUTICASONE 250/50 INHA INH (09:13)
[2018-02-11] MEDS: CALCIUM/VITAMIN D (500/200) TAB PO ×2 (09:13→20:12)
[2018-02-11] MEDS: FERROUS SULFATE (EC) 325 MG TAB PO ×2 (09:13→20:11)
[2018-02-11] MEDS: SODIUM CHLORIDE 1 GM TAB PO ×3 (09:13→20:12)
[2018-02-11] MEDS: BETHANECHOL 25 MG TAB PO ×3 (09:14→20:13)
[2018-02-11] MEDS: MAGNESIUM OXIDE 400 MG TAB PO ×2 (09:14→20:13)
[2018-02-11] MEDS: PROCHLORPERAZINE 5 MG TAB PO ×4 (09:15→20:12)
[2018-02-11] MEDS: METOPROLOL (XL) 25 MG TAB PO ×2 (09:15→18:05)
[2018-02-11] MEDS: LISINOPRIL 10 MG TAB PO ×2 (09:15→18:05)
[2018-02-11] MEDS: ASPIRIN 81 MG TAB PO (09:16)
[2018-02-11] MEDS: LACTOBACILLUS RHAMNOSUS CAP PO (09:16)
[2018-02-11] MEDS: LORATADINE 10 MG TAB PO (09:16)
[2018-02-11] MEDS: DEMECLOCYCLINE 150 MG TAB PO ×2 (09:17→20:12)
[2018-02-11] MEDS: ENOXAPARIN 40 MG/0.4 ML SYG SC (09:20)
[2018-02-11] MEDS: MEDIHONEY TOP (09:21)
[2018-02-11] MEDS: CLOPIDOGREL 75 MG TAB PO (12:00)
[2018-02-11 13:40] LABS: ANION GAP 14 (8-16); BLOOD UREA NITROGEN 22 mg/dl (7-20); CALCIUM 8.7 mg/dl (8.4-10.2); CARBON DIOXIDE 25 mmol/L (21-31); CHLORIDE 102 mmol/L (97-110); CREATININE 0.55 mg/dl (0.44-1.00); GLUCOSE 96 mg/dl (70-220); MAGNESIUM 2.1 mg/dl (1.7-2.5); PHOSPHORUS 2.8 mg/dl (2.5-4.9); POTASSIUM 3.9 mmol/L (3.5-5.1); SODIUM 137 mmol/L (135-144)
[2018-02-11] MEDS: RALOXIFENE 60 MG TAB PO (18:09)
[2018-02-11] MEDS: DOCUSATE SODIUM 100 MG CAP PO (18:09)
[2018-02-11] MEDS: MONTELUKAST 10 MG TAB PO (20:11)
[2018-02-11] MEDS: MOMETASONE 0.24 GM INHALER INH (20:13)
[2018-02-11] MEDS: PREGABALIN 25 MG CAP PO (20:18)
[2018-02-11] MEDS: CALCITONIN SALMON 3.7 ML NASAL SPRAY NASAL (20:27)
[2018-02-12] MEDS: DIAZEPAM 5 MG TAB PO (00:26)
[2018-02-12] MEDS: GABAPENTIN 100 MG CAP PO ×2 (00:26→09:00)
[2018-02-12] MEDS: IPRATROPIUM (HFA) 12.9 GM INHALER INH ×2 (00:26→06:00)
[2018-02-12] MEDS: PANTOPRAZOLE (EC) 40 MG TAB PO (06:00)
[2018-02-12] MEDS: CLOPIDOGREL 75 MG TAB PO (08:58)
[2018-02-12] MEDS: LORATADINE 10 MG TAB PO (08:58)
[2018-02-12] MEDS: HYDROCODONE/APAP (5/325) TAB PO (08:59)
[2018-02-12] MEDS: SODIUM CHLORIDE 1 GM TAB PO (08:59)
[2018-02-12] MEDS: DEMECLOCYCLINE 150 MG TAB PO (08:59)
[2018-02-12] MEDS: LISINOPRIL 10 MG TAB PO (08:59)
[2018-02-12] MEDS: FERROUS SULFATE (EC) 325 MG TAB PO (08:59)
[2018-02-12] MEDS: COLLAGENASE 30 GM TUBE TOP (09:00)
[2018-02-12] MEDS: metroNIDAZOLE 0.75% 45 GM GEL TOP (09:00)
[2018-02-12] MEDS: traMADol 50 MG TAB PO (09:00)
[2018-02-12] MEDS: ASCORBIC ACID 500 MG TAB PO (09:00)
[2018-02-12] MEDS: DICLOFENAC SODIUM 1% GEL 100 GM TUBE TP (09:00)
[2018-02-12] MEDS: ASPIRIN 81 MG TAB PO (09:00)
[2018-02-12] MEDS: CALCIUM/VITAMIN D (500/200) TAB PO (09:01)
[2018-02-12] MEDS: PROCHLORPERAZINE 5 MG TAB PO (09:01)
[2018-02-12] MEDS: BETHANECHOL 25 MG TAB PO (09:01)
[2018-02-12] MEDS: MAGNESIUM OXIDE 400 MG TAB PO (09:01)
[2018-02-12] MEDS: LACTOBACILLUS RHAMNOSUS CAP PO (09:01)
[2018-02-12] MEDS: SALMETEROL/FLUTICASONE 250/50 INHA INH (09:02)
[2018-02-12] MEDS: MEDIHONEY TOP (09:03)
[2018-02-12] MEDS: METOPROLOL (XL) 25 MG TAB PO (09:07)
== END 2018-02-12 12:35 | DRG 469 ==
LOC: FTE 15:19 → MS1 20:11
PROC: 0HQGXZZ Repair Left Hand Skin, External Approach (ICD-10-PCS; principal; 2018-02-08 10:41)
PROC: 0SRS01Z Replacement of Left Hip Joint, Femoral Surface with Metal Synthetic Substitute, Open Approach (ICD-10-PCS; 2018-02-08 10:41)
DX: S72.012A Unspecified intracapsular fracture of left femur, initial encounter for closed fracture (principal); I63.8 Other cerebral infarction; E22.2 Syndrome of inappropriate secretion of antidiuretic hormone; E87.1 Hypo-osmolality and hyponatremia; I69.954 Hemiplegia and hemiparesis following unspecified cerebrovascular disease affecting left non-dominant side; S61.412A Laceration without foreign body of left hand, initial encounter; J44.9 Chronic obstructive pulmonary disease, unspecified; D64.9 Anemia, unspecified; J45.909 Unspecified asthma, uncomplicated; K40.90 Unilateral inguinal hernia, without obstruction or gangrene, not specified as recurrent; E83.42 Hypomagnesemia; I10 Essential (primary) hypertension; M19.90 Unspecified osteoarthritis, unspecified site; W01.0XXA Fall on same level from slipping, tripping and stumbling without subsequent striking against object, initial encounter; M81.0 Age-related osteoporosis without current pathological fracture; Z90.710 Acquired absence of both cervix and uterus; M43.27 Fusion of spine, lumbosacral region; Z87.81 Personal history of (healed) traumatic fracture
CPT/HCPCS: 70450; 71045; 72170; 72192; 73130-LT; 73510; 80048; 80053; 80061; 81003; 83036; 83735; 84100; 84436; 84443; 84479; 84484; 85014; 85018; 85025; 85610; 85730; 86850; 86900; 86901; 86920; 88305; 88311; 90471; 90715; 93005; 93306; 93880; 97110; 97116; 97162; 97530; 99285-25

== ENCOUNTER 2018-02-12 12:30 | Inpatient (IN) | payer MEDICARE, BC ==
[2018-02-12] MEDS ORDERED: ACETAMINOPHEN 325 MG TAB PO (15:30)
[2018-02-12] MEDS ORDERED: morphine 2 MG INJ IV (16:00)
[2018-02-12] MEDS ORDERED: ONDANSETRON 4 MG INJ IV (16:00)
[2018-02-12] MEDS: GABAPENTIN 100 MG CAP PO ×3 (17:57→23:09)
[2018-02-12] MEDS: METOPROLOL (XL) 25 MG TAB PO (17:57)
[2018-02-12] MEDS: LISINOPRIL 10 MG TAB PO (17:57)
[2018-02-12] MEDS: RALOXIFENE 60 MG TAB PO (18:10)
[2018-02-12] MEDS: DEMECLOCYCLINE 150 MG TAB PO (21:16)
[2018-02-12] MEDS: ASCORBIC ACID 500 MG TAB PO (21:16)
[2018-02-12] MEDS: SENNA TAB PO (21:16)
[2018-02-12] MEDS: MONTELUKAST 10 MG TAB PO (21:16)
[2018-02-12] MEDS: FERROUS SULFATE (EC) 325 MG TAB PO (21:16)
[2018-02-12] MEDS: CALCIUM/VITAMIN D (500/200) TAB PO (21:16)
[2018-02-12] MEDS: MOMETASONE 0.24 GM INHALER INH (21:17)
[2018-02-12] MEDS: DOCUSATE SODIUM 100 MG CAP PO (21:25)
[2018-02-12] MEDS: DIAZEPAM 5 MG TAB PO (23:09)
[2018-02-12] MEDS: BETHANECHOL 25 MG TAB PO (23:21)
[2018-02-13 02:20] LABS: ADD UMIC YES; UR ASCORBIC ACID 40 mg/dL (NEGATIVE); UR BACTERIA MODERATE /HPF (NONE SEEN); UR BILIRUBIN (Dip) NEGATIVE (NEGATIVE); UR BLOOD (Dip) NEGATIVE (NEGATIVE); UR CLARITY SLIGHTLY CLOUDY (CLEAR); UR COLOR YELLOW (YELLOW); UR GLUCOSE (Dip) NEGATIVE (NEGATIVE); UR KETONES (Dip) NEGATIVE (NEGATIVE); UR LEUKOCYTE ESTERASE (Dip) 1+ Leu/ul (NEGATIVE); UR NITRITE (Dip) NEGATIVE (NEGATIVE); UR RBC 1 /HPF (0-5); UR SPECIFIC GRAVITY (Dip) 1.016 (1.003-1.030); UR SQUAMOUS EPITHELIAL CELL FEW /HPF (FEW); UR TOTAL PROTEIN (Dip) 1+ mg/dl (NEGATIVE); UR UROBILINOGEN (Dip) NEGATIVE (NEGATIVE); UR WBC 4 /HPF (0-5)
[2018-02-13 06:13] LABS: ADD MAN DIFF? NO
[2018-02-13 06:18] LABS: BASOPHIL # 0.1 10^3/ul (0.0-0.1); BASOPHILS % 0.7 % (0.0-2.0); EOSINOPHILS # 0.7 10^3/ul (0.0-0.5); EOSINOPHILS % 8.9 % (0.0-7.0); HEMATOCRIT 26.9 % (37.0-47.0); HEMOGLOBIN 9.1 g/dl (12.0-16.0); LYMPHOCYTES # 1.1 10^3/ul (0.8-2.9); LYMPHOCYTES % 14.5 % (15.0-51.0); MEAN CORPUSCULAR HEMOGLOBIN 31.7 pg (29.0-33.0); MEAN CORPUSCULAR HGB CONC 33.8 g/dl (32.0-37.0); MEAN CORPUSCULAR VOLUME 93.7 fl (82.0-101.0); MEAN PLATELET VOLUME 8.7 fl (7.4-10.4); MONOCYTE # 0.7 10^3/ul (0.3-0.9); MONOCYTES % 9.5 % (0.0-11.0); NEUTROPHIL # 4.7 10^3/ul (1.6-7.5); NEUTROPHILS % 64.4 % (39.0-77.0); PLATELET COUNT 557 10^3/UL (140-415); RED BLOOD COUNT 2.87 10^6/ul (4.20-5.40); RED CELL DISTRIBUTION WIDTH 13.4 % (11.5-14.5)
[2018-02-13 06:18] LABS: WHITE BLOOD COUNT 7.3 10^3/ul (4.8-10.8)
[2018-02-13 06:40] LABS: ALANINE AMINOTRANSFERASE 24 IU/L (13-69); ALKALINE PHOSPHATASE 50 IU/L (42-121); ANION GAP 15 (8-16); ASPARTATE AMINO TRANSFERASE 18 IU/L (15-46); BILIRUBIN,INDIRECT 0.2 mg/dl (0-1.1); BILIRUBIN,TOTAL 0.2 mg/dl (0.2-1.3); BLOOD UREA NITROGEN 22 mg/dl (7-20); CALCIUM 9.2 mg/dl (8.4-10.2); CARBON DIOXIDE 28 mmol/L (21-31); CHLORIDE 100 mmol/L (97-110); CREATININE 0.46 mg/dl (0.44-1.00); GLUCOSE 91 mg/dl (70-220); POTASSIUM 4.4 mmol/L (3.5-5.1); SODIUM 139 mmol/L (135-144)
[2018-02-13] MEDS: PANTOPRAZOLE (EC) 40 MG TAB PO (07:09)
[2018-02-13] MEDS: LACTOBACILLUS RHAMNOSUS CAP PO (08:29)
[2018-02-13] MEDS: LORATADINE 10 MG TAB PO (08:29)
[2018-02-13] MEDS: FERROUS SULFATE (EC) 325 MG TAB PO ×2 (08:29→17:56)
[2018-02-13] MEDS: DEMECLOCYCLINE 150 MG TAB PO ×2 (08:30→21:15)
[2018-02-13] MEDS: ASPIRIN 81 MG TAB PO (08:30)
[2018-02-13] MEDS: GABAPENTIN 100 MG CAP PO ×3 (08:30→21:17)
[2018-02-13] MEDS: BETHANECHOL 25 MG TAB PO ×3 (08:30→21:13)
[2018-02-13] MEDS: PREGABALIN 25 MG CAP PO (08:30)
[2018-02-13] MEDS: ASCORBIC ACID 500 MG TAB PO ×2 (08:30→17:56)
[2018-02-13] MEDS: CALCIUM/VITAMIN D (500/200) TAB PO ×2 (08:30→17:56)
[2018-02-13] MEDS: SALMETEROL/FLUTICASONE 250/50 INHA INH (08:31)
[2018-02-13] MEDS: CLOPIDOGREL 75 MG TAB PO (08:44)
[2018-02-13] MEDS: HYDROCODONE/APAP (5/325) TAB PO ×2 (08:45→16:37)
[2018-02-13] MEDS: METOPROLOL (XL) 25 MG TAB PO ×2 (08:45→19:00)
[2018-02-13] MEDS: LISINOPRIL 10 MG TAB PO ×2 (08:45→19:00)
[2018-02-13] MEDS: IPRATROPIUM (HFA) 12.9 GM INHALER INH ×2 (08:52→21:25)
[2018-02-13] MEDS: COLLAGENASE 30 GM TUBE TOP (09:00)
[2018-02-13] MEDS ORDERED: MEDIHONEY TOP (09:00)
[2018-02-13] MEDS ORDERED: BETHANECHOL 25 MG TAB PO (09:00)
[2018-02-13] MEDS: MEDIHONEY TOP (09:00)
[2018-02-13] MEDS: DICLOFENAC SODIUM 1% GEL 100 GM TUBE TP (09:00)
[2018-02-13] MEDS ORDERED: metroNIDAZOLE 0.75% 45 GM GEL TOP (09:00)
[2018-02-13] MEDS: metroNIDAZOLE 0.75% 45 GM GEL TOP (14:27)
[2018-02-13] MEDS: PROCHLORPERAZINE 5 MG TAB PO (14:59)
[2018-02-13] MEDS: RALOXIFENE 60 MG TAB PO (17:57)
[2018-02-13] MEDS: NITROFURANTOIN (SR) 100 MG CAP PO (17:58)
[2018-02-13] MEDS ORDERED: DIAZEPAM 5 MG TAB PO (21:00)
[2018-02-13] MEDS: SENNA TAB PO (21:00)
[2018-02-13] MEDS ORDERED: ESTRADIOL 0.05 MG/24 HR TOP (21:00)
[2018-02-13] MEDS: MOMETASONE 0.24 GM INHALER INH (21:13)
[2018-02-13] MEDS: MONTELUKAST 10 MG TAB PO (21:15)
[2018-02-13] MEDS: ESTRADIOL 0.05 MG/24 HR TOP (23:08)
[2018-02-13] MEDS: CALCITONIN SALMON 3.7 ML NASAL SPRAY NASAL (23:08)
[2018-02-13] MEDS: DIAZEPAM 5 MG TAB PO (23:37)
[2018-02-14] MEDS: PANTOPRAZOLE (EC) 40 MG TAB PO (07:05)
[2018-02-14] MEDS: MEDIHONEY TOP (09:00)
[2018-02-14] MEDS: DICLOFENAC SODIUM 1% GEL 100 GM TUBE TP (09:00)
[2018-02-14] MEDS: PREGABALIN 25 MG CAP PO (09:00)
[2018-02-14] MEDS: COLLAGENASE 30 GM TUBE TOP (09:00)
[2018-02-14] MEDS: DEMECLOCYCLINE 150 MG TAB PO ×2 (09:01→21:33)
[2018-02-14] MEDS: CLOPIDOGREL 75 MG TAB PO (09:01)
[2018-02-14] MEDS: LORATADINE 10 MG TAB PO (09:01)
[2018-02-14] MEDS: ASCORBIC ACID 500 MG TAB PO ×2 (09:01→21:32)
[2018-02-14] MEDS: LACTOBACILLUS RHAMNOSUS CAP PO (09:01)
[2018-02-14] MEDS: FERROUS SULFATE (EC) 325 MG TAB PO ×2 (09:01→21:33)
[2018-02-14] MEDS: CALCIUM/VITAMIN D (500/200) TAB PO ×2 (09:02→21:33)
[2018-02-14] MEDS: ASPIRIN 81 MG TAB PO (09:02)
[2018-02-14] MEDS: LISINOPRIL 10 MG TAB PO ×2 (09:02→17:35)
[2018-02-14] MEDS: BETHANECHOL 25 MG TAB PO ×3 (09:02→21:33)
[2018-02-14] MEDS: METOPROLOL (XL) 25 MG TAB PO ×2 (09:03→17:35)
[2018-02-14] MEDS: MUPIROCIN 2% 22 GM OINT TOP ×2 (09:04→21:31)
[2018-02-14] MEDS: SALMETEROL/FLUTICASONE 250/50 INHA INH (09:05)
[2018-02-14] MEDS: metroNIDAZOLE 0.75% 45 GM GEL TOP (09:07)
[2018-02-14] MEDS: GABAPENTIN 100 MG CAP PO ×3 (09:22→21:00)
[2018-02-14] MEDS: PROCHLORPERAZINE 5 MG TAB PO ×2 (09:33→16:05)
[2018-02-14] MEDS: HYDROCODONE/APAP (5/325) TAB PO ×2 (09:40→18:04)
[2018-02-14] MEDS: NITROFURANTOIN (SR) 100 MG CAP PO (16:04)
[2018-02-14] MEDS: RALOXIFENE 60 MG TAB PO (17:55)
[2018-02-14] MEDS: DOCUSATE SODIUM 100 MG CAP PO (18:04)
[2018-02-14] MEDS: MONTELUKAST 10 MG TAB PO (21:32)
[2018-02-14] MEDS: MOMETASONE 0.24 GM INHALER INH (21:32)
[2018-02-14] MEDS: SENNA TAB PO (21:33)
[2018-02-15] MEDS: GABAPENTIN 100 MG CAP PO ×3 (00:22→20:38)
[2018-02-15] MEDS: DIAZEPAM 5 MG TAB PO (00:23)
[2018-02-15] MEDS: PANTOPRAZOLE (EC) 40 MG TAB PO (06:06)
[2018-02-15] MEDS: HYDROCODONE/APAP (5/325) TAB PO (06:08)
[2018-02-15] MEDS: METOPROLOL (XL) 25 MG TAB PO ×2 (08:13→17:25)
[2018-02-15] MEDS: LISINOPRIL 10 MG TAB PO ×2 (08:13→17:26)
[2018-02-15] MEDS: SALMETEROL/FLUTICASONE 250/50 INHA INH (08:14)
[2018-02-15] MEDS: ASPIRIN 81 MG TAB PO (08:15)
[2018-02-15] MEDS: CALCITONIN SALMON 3.7 ML NASAL SPRAY NASAL (08:15)
[2018-02-15] MEDS: LORATADINE 10 MG TAB PO (08:15)
[2018-02-15] MEDS: DEMECLOCYCLINE 150 MG TAB PO ×2 (08:16→20:38)
[2018-02-15] MEDS: ASCORBIC ACID 500 MG TAB PO (08:16)
[2018-02-15] MEDS: BETHANECHOL 25 MG TAB PO ×3 (08:16→20:37)
[2018-02-15] MEDS: FERROUS SULFATE (EC) 325 MG TAB PO ×2 (08:16→20:37)
[2018-02-15] MEDS: CLOPIDOGREL 75 MG TAB PO (08:16)
[2018-02-15] MEDS: CALCIUM/VITAMIN D (500/200) TAB PO (08:16)
[2018-02-15] MEDS: LACTOBACILLUS RHAMNOSUS CAP PO (08:16)
[2018-02-15] MEDS: DICLOFENAC SODIUM 1% GEL 100 GM TUBE TP (08:19)
[2018-02-15] MEDS: MUPIROCIN 2% 22 GM OINT TOP ×2 (08:20→20:37)
[2018-02-15] MEDS: metroNIDAZOLE 0.75% 45 GM GEL TOP (08:20)
[2018-02-15] MEDS: MEDIHONEY TOP (09:00)
[2018-02-15] MEDS: COLLAGENASE 30 GM TUBE TOP (09:00)
[2018-02-15] MEDS: DOCUSATE SODIUM 100 MG CAP PO ×2 (12:42→20:53)
[2018-02-15] MEDS: PROCHLORPERAZINE 5 MG TAB PO (12:42)
[2018-02-15] MEDS: NITROFURANTOIN (SR) 100 MG CAP PO (14:19)
[2018-02-15] MEDS: RALOXIFENE 60 MG TAB PO (17:52)
[2018-02-15] MEDS: MONTELUKAST 10 MG TAB PO (20:37)
[2018-02-15] MEDS: MOMETASONE 0.24 GM INHALER INH (20:38)
[2018-02-15] MEDS: SENNA TAB PO (20:39)
[2018-02-15] MEDS: IPRATROPIUM (HFA) 12.9 GM INHALER INH (21:50)
[2018-02-16] MEDS: DIAZEPAM 5 MG TAB PO (00:05)
[2018-02-16] MEDS: PANTOPRAZOLE (EC) 40 MG TAB PO (06:37)
[2018-02-16] MEDS ORDERED: ASCORBIC ACID 500 MG TAB PO (08:00)
[2018-02-16] MEDS: DEMECLOCYCLINE 150 MG TAB PO ×2 (09:00→21:02)
[2018-02-16] MEDS: COLLAGENASE 30 GM TUBE TOP (09:00)
[2018-02-16] MEDS: CALCITONIN SALMON 3.7 ML NASAL SPRAY NASAL (09:00)
[2018-02-16] MEDS: LACTOBACILLUS RHAMNOSUS CAP PO (09:00)
[2018-02-16] MEDS: FERROUS SULFATE (EC) 325 MG TAB PO ×2 (09:01→18:23)
[2018-02-16] MEDS: BETHANECHOL 25 MG TAB PO ×3 (09:01→21:04)
[2018-02-16] MEDS: ASPIRIN 81 MG TAB PO (09:01)
[2018-02-16] MEDS: GABAPENTIN 100 MG CAP PO ×3 (09:01→21:49)
[2018-02-16] MEDS: LISINOPRIL 10 MG TAB PO ×2 (09:02→17:35)
[2018-02-16] MEDS: ASCORBIC ACID 500 MG TAB PO ×2 (09:02→18:06)
[2018-02-16] MEDS: CLOPIDOGREL 75 MG TAB PO (09:02)
[2018-02-16] MEDS: LORATADINE 10 MG TAB PO (09:03)
[2018-02-16] MEDS: METOPROLOL (XL) 25 MG TAB PO ×2 (09:03→17:35)
[2018-02-16] MEDS: CALCIUM/VITAMIN D (500/200) TAB PO ×2 (09:04→18:06)
[2018-02-16] MEDS: MUPIROCIN 2% 22 GM OINT TOP ×2 (09:04→21:04)
[2018-02-16] MEDS: metroNIDAZOLE 0.75% 45 GM GEL TOP (09:04)
[2018-02-16] MEDS: DICLOFENAC SODIUM 1% GEL 100 GM TUBE TP (09:05)
[2018-02-16] MEDS: MEDIHONEY TOP (09:06)
[2018-02-16] MEDS: SALMETEROL/FLUTICASONE 250/50 INHA INH (09:07)
[2018-02-16] MEDS: PROCHLORPERAZINE 5 MG TAB PO ×2 (09:13→21:04)
[2018-02-16] MEDS: IPRATROPIUM (HFA) 12.9 GM INHALER INH ×2 (09:13→21:49)
[2018-02-16] MEDS: DOCUSATE SODIUM 100 MG CAP PO (09:14)
[2018-02-16] MEDS: HYDROCODONE/APAP (5/325) TAB PO (12:50)
[2018-02-16] MEDS: NITROFURANTOIN (SR) 100 MG CAP PO (18:05)
[2018-02-16] MEDS: RALOXIFENE 60 MG TAB PO (18:23)
[2018-02-16] MEDS ORDERED: PATIENT'S OWN MEDICATION TOP (21:00)
[2018-02-16] MEDS: SENNA TAB PO (21:00)
[2018-02-16] MEDS: MOMETASONE 0.24 GM INHALER INH (21:02)
[2018-02-16] MEDS: MONTELUKAST 10 MG TAB PO (21:03)
[2018-02-16] MEDS: ESTRADIOL 0.05 MG/24 HR TOP (21:05)
[2018-02-17] MEDS: DIAZEPAM 5 MG TAB PO ×2 (01:07→23:58)
[2018-02-17] MEDS: PANTOPRAZOLE (EC) 40 MG TAB PO (06:17)
[2018-02-17] MEDS: LISINOPRIL 10 MG TAB PO ×2 (07:35→17:20)
[2018-02-17] MEDS: METOPROLOL (XL) 25 MG TAB PO ×2 (07:35→17:19)
[2018-02-17 08:10] LABS: ANION GAP 16 (8-16); BLOOD UREA NITROGEN 22 mg/dl (7-20); CALCIUM 9.4 mg/dl (8.4-10.2); CARBON DIOXIDE 29 mmol/L (21-31); CHLORIDE 100 mmol/L (97-110); CREATININE 0.52 mg/dl (0.44-1.00); GLUCOSE 84 mg/dl (70-220); MAGNESIUM 1.8 mg/dl (1.7-2.5); PHOSPHORUS 4.4 mg/dl (2.5-4.9); POTASSIUM 4.1 mmol/L (3.5-5.1); SODIUM 141 mmol/L (135-144)
[2018-02-17] MEDS: SALMETEROL/FLUTICASONE 250/50 INHA INH (08:20)
[2018-02-17] MEDS: IPRATROPIUM (HFA) 12.9 GM INHALER INH ×2 (08:20→18:24)
[2018-02-17] MEDS: GABAPENTIN 100 MG CAP PO ×3 (08:21→20:50)
[2018-02-17] MEDS: MUPIROCIN 2% 22 GM OINT TOP ×2 (08:21→20:51)
[2018-02-17] MEDS: metroNIDAZOLE 0.75% 45 GM GEL TOP (08:21)
[2018-02-17] MEDS: LACTOBACILLUS RHAMNOSUS CAP PO (08:21)
[2018-02-17] MEDS: CLOPIDOGREL 75 MG TAB PO (08:21)
[2018-02-17] MEDS: LORATADINE 10 MG TAB PO (08:22)
[2018-02-17] MEDS: ASCORBIC ACID 500 MG TAB PO ×2 (08:22→17:18)
[2018-02-17] MEDS: FERROUS SULFATE (EC) 325 MG TAB PO ×2 (08:22→20:50)
[2018-02-17] MEDS: HYDROCODONE/APAP (5/325) TAB PO ×2 (08:22→11:34)
[2018-02-17] MEDS: CALCIUM/VITAMIN D (500/200) TAB PO ×2 (08:22→17:18)
[2018-02-17] MEDS: ASPIRIN 81 MG TAB PO (08:22)
[2018-02-17] MEDS: BETHANECHOL 25 MG TAB PO ×3 (08:22→20:50)
[2018-02-17] MEDS: CALCITONIN SALMON 3.7 ML NASAL SPRAY NASAL ×2 (08:23→20:51)
[2018-02-17] MEDS: MEDIHONEY TOP (08:24)
[2018-02-17] MEDS: COLLAGENASE 30 GM TUBE TOP (08:25)
[2018-02-17] MEDS: DICLOFENAC SODIUM 1% GEL 100 GM TUBE TP (08:25)
[2018-02-17] MEDS: DEMECLOCYCLINE 150 MG TAB PO ×2 (08:55→20:50)
[2018-02-17] MEDS: LACTULOSE 30ML CUP PO (09:57)
[2018-02-17] MEDS: DOCUSATE SODIUM 100 MG CAP PO ×2 (09:57→20:50)
[2018-02-17] MEDS: PROCHLORPERAZINE 5 MG TAB PO ×2 (09:57→21:02)
[2018-02-17] MEDS: CELECOXIB 100 MG CAP PO (13:42)
[2018-02-17] MEDS: NITROFURANTOIN (SR) 100 MG CAP PO (13:42)
[2018-02-17] MEDS: RALOXIFENE 60 MG TAB PO (18:24)
[2018-02-17] MEDS: MONTELUKAST 10 MG TAB PO (20:50)
[2018-02-17] MEDS: MOMETASONE 0.24 GM INHALER INH (20:51)
[2018-02-17] MEDS: SENNA TAB PO (20:56)
[2018-02-18] MEDS: PANTOPRAZOLE (EC) 40 MG TAB PO (05:23)
[2018-02-18] MEDS: METOPROLOL (XL) 25 MG TAB PO ×2 (07:35→17:35)
[2018-02-18] MEDS: LISINOPRIL 10 MG TAB PO ×3 (07:35→21:07)
[2018-02-18] MEDS: GABAPENTIN 100 MG CAP PO ×3 (08:43→21:05)
[2018-02-18] MEDS: CALCIUM/VITAMIN D (500/200) TAB PO ×2 (08:45→17:49)
[2018-02-18] MEDS: ASCORBIC ACID 500 MG TAB PO ×2 (08:45→17:49)
[2018-02-18] MEDS: FERROUS SULFATE (EC) 325 MG TAB PO ×2 (08:45→21:07)
[2018-02-18] MEDS: LORATADINE 10 MG TAB PO (08:45)
[2018-02-18] MEDS: HYDROCODONE/APAP (5/325) TAB PO ×3 (08:46→21:50)
[2018-02-18] MEDS: CLOPIDOGREL 75 MG TAB PO (08:46)
[2018-02-18] MEDS: PROCHLORPERAZINE 5 MG TAB PO (08:46)
[2018-02-18] MEDS: BETHANECHOL 25 MG TAB PO ×3 (08:46→21:05)
[2018-02-18] MEDS: ASPIRIN 81 MG TAB PO (08:46)
[2018-02-18] MEDS: CELECOXIB 100 MG CAP PO (08:47)
[2018-02-18] MEDS: DOCUSATE SODIUM 100 MG CAP PO ×2 (08:47→21:05)
[2018-02-18] MEDS: LACTOBACILLUS RHAMNOSUS CAP PO (08:47)
[2018-02-18] MEDS: SALMETEROL/FLUTICASONE 250/50 INHA INH (08:49)
[2018-02-18] MEDS: IPRATROPIUM (HFA) 12.9 GM INHALER INH (08:49)
[2018-02-18] MEDS: DICLOFENAC SODIUM 1% GEL 100 GM TUBE TP (08:49)
[2018-02-18] MEDS: MEDIHONEY TOP (08:50)
[2018-02-18] MEDS: MUPIROCIN 2% 22 GM OINT TOP ×2 (08:50→21:11)
[2018-02-18] MEDS: COLLAGENASE 30 GM TUBE TOP (08:50)
[2018-02-18] MEDS: metroNIDAZOLE 0.75% 45 GM GEL TOP (08:51)
[2018-02-18] MEDS: NITROFURANTOIN (SR) 100 MG CAP PO ×2 (14:23→21:18)
[2018-02-18] MEDS: RALOXIFENE 60 MG TAB PO (17:49)
[2018-02-18] MEDS: SENNA TAB PO (21:00)
[2018-02-18] MEDS: MONTELUKAST 10 MG TAB PO (21:07)
[2018-02-18] MEDS: MOMETASONE 0.24 GM INHALER INH (21:07)
[2018-02-18] MEDS: CALCITONIN SALMON 3.7 ML NASAL SPRAY NASAL (21:22)
[2018-02-18] MEDS: DIAZEPAM 5 MG TAB PO (21:31)
[2018-02-19] MEDS: PANTOPRAZOLE (EC) 40 MG TAB PO (06:43)
[2018-02-19] MEDS: METOPROLOL (XL) 25 MG TAB PO ×2 (07:35→18:05)
[2018-02-19] MEDS: NITROFURANTOIN (SR) 100 MG CAP PO ×2 (09:26→22:06)
[2018-02-19] MEDS: HYDROCODONE/APAP (5/325) TAB PO ×2 (09:27→15:47)
[2018-02-19] MEDS: ASCORBIC ACID 500 MG TAB PO ×2 (09:28→18:06)
[2018-02-19] MEDS: CLOPIDOGREL 75 MG TAB PO (09:28)
[2018-02-19] MEDS: BETHANECHOL 25 MG TAB PO ×3 (09:28→22:07)
[2018-02-19] MEDS: DOCUSATE SODIUM 100 MG CAP PO ×2 (09:28→22:08)
[2018-02-19] MEDS: LACTOBACILLUS RHAMNOSUS CAP PO (09:29)
[2018-02-19] MEDS: FERROUS SULFATE (EC) 325 MG TAB PO ×3 (09:29→21:00)
[2018-02-19] MEDS: GABAPENTIN 100 MG CAP PO ×3 (09:29→22:07)
[2018-02-19] MEDS: CELECOXIB 100 MG CAP PO (09:29)
[2018-02-19] MEDS: ASPIRIN 81 MG TAB PO (09:30)
[2018-02-19] MEDS: LORATADINE 10 MG TAB PO (09:30)
[2018-02-19] MEDS: metroNIDAZOLE 0.75% 45 GM GEL TOP (09:30)
[2018-02-19] MEDS: DICLOFENAC SODIUM 1% GEL 100 GM TUBE TP (09:30)
[2018-02-19] MEDS: SALMETEROL/FLUTICASONE 250/50 INHA INH (09:30)
[2018-02-19] MEDS: CALCIUM/VITAMIN D (500/200) TAB PO ×2 (09:30→18:06)
[2018-02-19] MEDS: PROCHLORPERAZINE 5 MG TAB PO (09:30)
[2018-02-19] MEDS: COLLAGENASE 30 GM TUBE TOP (09:30)
[2018-02-19] MEDS: MEDIHONEY TOP (09:31)
[2018-02-19] MEDS: MUPIROCIN 2% 22 GM OINT TOP ×2 (09:31→22:50)
[2018-02-19] MEDS: IPRATROPIUM (HFA) 12.9 GM INHALER INH ×2 (09:31→22:09)
[2018-02-19] MEDS: LISINOPRIL 10 MG TAB PO ×2 (18:06→22:07)
[2018-02-19] MEDS: RALOXIFENE 60 MG TAB PO (18:06)
[2018-02-19] MEDS: SENNA TAB PO (21:00)
[2018-02-19] MEDS: MOMETASONE 0.24 GM INHALER INH (22:08)
[2018-02-19] MEDS: CALCITONIN SALMON 3.7 ML NASAL SPRAY NASAL (22:08)
[2018-02-19] MEDS: MONTELUKAST 10 MG TAB PO (22:11)
[2018-02-20] MEDS: DIAZEPAM 5 MG TAB PO ×2 (00:26→23:29)
[2018-02-20] MEDS: PANTOPRAZOLE (EC) 40 MG TAB PO (06:59)
[2018-02-20] MEDS: LISINOPRIL 10 MG TAB PO ×2 (07:35→17:35)
[2018-02-20] MEDS: METOPROLOL (XL) 25 MG TAB PO ×2 (07:35→17:35)
[2018-02-20 08:11] LABS: ANION GAP 15 (8-16); BLOOD UREA NITROGEN 22 mg/dl (7-20); CARBON DIOXIDE 27 mmol/L (21-31); CHLORIDE 104 mmol/L (97-110); CREATININE 0.46 mg/dl (0.44-1.00); GLUCOSE 88 mg/dl (70-220); MAGNESIUM 1.8 mg/dl (1.7-2.5); PHOSPHORUS 3.7 mg/dl (2.5-4.9); POTASSIUM 4.3 mmol/L (3.5-5.1); SODIUM 142 mmol/L (135-144)
[2018-02-20] MEDS: LACTOBACILLUS RHAMNOSUS CAP PO (09:07)
[2018-02-20] MEDS: LORATADINE 10 MG TAB PO (09:08)
[2018-02-20] MEDS: DOCUSATE SODIUM 100 MG CAP PO ×2 (09:08→20:19)
[2018-02-20] MEDS: NITROFURANTOIN (SR) 100 MG CAP PO ×2 (09:08→20:18)
[2018-02-20] MEDS: ASCORBIC ACID 500 MG TAB PO ×2 (09:09→19:01)
[2018-02-20] MEDS: FERROUS SULFATE (EC) 325 MG TAB PO ×2 (09:09→20:18)
[2018-02-20] MEDS: ASPIRIN 81 MG TAB PO (09:09)
[2018-02-20] MEDS: CELECOXIB 100 MG CAP PO (09:09)
[2018-02-20] MEDS: BETHANECHOL 25 MG TAB PO ×3 (09:09→20:18)
[2018-02-20] MEDS: CALCIUM/VITAMIN D (500/200) TAB PO ×2 (09:09→18:58)
[2018-02-20] MEDS: CLOPIDOGREL 75 MG TAB PO (09:09)
[2018-02-20] MEDS: HYDROCODONE/APAP (5/325) TAB PO ×2 (09:11→16:15)
[2018-02-20] MEDS: SALMETEROL/FLUTICASONE 250/50 INHA INH (09:13)
[2018-02-20] MEDS: PROCHLORPERAZINE 5 MG TAB PO ×2 (09:19→21:38)
[2018-02-20] MEDS: GABAPENTIN 100 MG CAP PO ×3 (09:19→20:19)
[2018-02-20] MEDS: IPRATROPIUM (HFA) 12.9 GM INHALER INH (09:19)
[2018-02-20] MEDS: MUPIROCIN 2% 22 GM OINT TOP ×2 (11:34→20:21)
[2018-02-20] MEDS: BISACODYL (EC) 5 MG TAB PO (16:15)
[2018-02-20] MEDS: RALOXIFENE 60 MG TAB PO (18:58)
[2018-02-20] MEDS: metroNIDAZOLE 0.75% 45 GM GEL TOP (19:05)
[2018-02-20] MEDS: DICLOFENAC SODIUM 1% GEL 100 GM TUBE TP (19:06)
[2018-02-20] MEDS: MONTELUKAST 10 MG TAB PO (20:18)
[2018-02-20] MEDS: MOMETASONE 0.24 GM INHALER INH (20:19)
[2018-02-20] MEDS: SENNA TAB PO (20:19)
[2018-02-20] MEDS: CALCITONIN SALMON 3.7 ML NASAL SPRAY NASAL (20:20)
[2018-02-20] MEDS: COLLAGENASE 30 GM TUBE TOP (20:20)
[2018-02-20] MEDS: MEDIHONEY TOP (20:22)
[2018-02-20] MEDS: ESTRADIOL 0.05 MG/24 HR TOP (21:43)
[2018-02-21] MEDS: PANTOPRAZOLE (EC) 40 MG TAB PO (06:34)
[2018-02-21] MEDS: METOPROLOL (XL) 25 MG TAB PO ×2 (07:35→18:42)
[2018-02-21] MEDS: LISINOPRIL 10 MG TAB PO ×2 (07:35→18:42)
[2018-02-21] MEDS: HYDROCODONE/APAP (5/325) TAB PO (09:41)
[2018-02-21] MEDS: IPRATROPIUM (HFA) 12.9 GM INHALER INH ×2 (10:02→21:13)
[2018-02-21] MEDS: NITROFURANTOIN (SR) 100 MG CAP PO ×2 (10:02→21:10)
[2018-02-21] MEDS: CALCIUM/VITAMIN D (500/200) TAB PO ×2 (10:02→18:28)
[2018-02-21] MEDS: LACTOBACILLUS RHAMNOSUS CAP PO (10:03)
[2018-02-21] MEDS: LORATADINE 10 MG TAB PO (10:03)
[2018-02-21] MEDS: DOCUSATE SODIUM 100 MG CAP PO ×2 (10:03→21:10)
[2018-02-21] MEDS: ASPIRIN 81 MG TAB PO (10:03)
[2018-02-21] MEDS: FERROUS SULFATE (EC) 325 MG TAB PO ×2 (10:03→21:00)
[2018-02-21] MEDS: CLOPIDOGREL 75 MG TAB PO (10:03)
[2018-02-21] MEDS: BETHANECHOL 25 MG TAB PO ×3 (10:03→21:10)
[2018-02-21] MEDS: CELECOXIB 100 MG CAP PO (10:03)
[2018-02-21] MEDS: GABAPENTIN 100 MG CAP PO ×3 (10:14→21:09)
[2018-02-21] MEDS: ASCORBIC ACID 500 MG TAB PO ×2 (10:14→18:28)
[2018-02-21] MEDS: SALMETEROL/FLUTICASONE 250/50 INHA INH (10:14)
[2018-02-21] MEDS: CYANOCOBALAMIN 1000 MCG INJ IM (13:01)
[2018-02-21] MEDS: DICLOFENAC SODIUM 1% GEL 100 GM TUBE TP (13:03)
[2018-02-21] MEDS: MUPIROCIN 2% 22 GM OINT TOP ×2 (13:03→21:12)
[2018-02-21] MEDS: COLLAGENASE 30 GM TUBE TOP (13:04)
[2018-02-21] MEDS: metroNIDAZOLE 0.75% 45 GM GEL TOP (13:04)
[2018-02-21] MEDS: MEDIHONEY TOP (13:05)
[2018-02-21] MEDS: LACTULOSE 30ML CUP PO (15:32)
[2018-02-21] MEDS: RALOXIFENE 60 MG TAB PO (18:29)
[2018-02-21] MEDS: PROCHLORPERAZINE 5 MG TAB PO (18:45)
[2018-02-21] MEDS: SENNA TAB PO (21:00)
[2018-02-21] MEDS: MOMETASONE 0.24 GM INHALER INH (21:09)
[2018-02-21] MEDS: MONTELUKAST 10 MG TAB PO (21:11)
[2018-02-21] MEDS: CALCITONIN SALMON 3.7 ML NASAL SPRAY NASAL (21:12)
[2018-02-22] MEDS: DIAZEPAM 5 MG TAB PO (01:55)
[2018-02-22] MEDS: PANTOPRAZOLE (EC) 40 MG TAB PO (06:31)
[2018-02-22] MEDS: ASPIRIN 81 MG TAB PO (08:22)
[2018-02-22] MEDS: NITROFURANTOIN (SR) 100 MG CAP PO (08:22)
[2018-02-22] MEDS: CELECOXIB 100 MG CAP PO (08:22)
[2018-02-22] MEDS: DOCUSATE SODIUM 100 MG CAP PO ×2 (08:22→20:41)
[2018-02-22] MEDS: LACTOBACILLUS RHAMNOSUS CAP PO (08:22)
[2018-02-22] MEDS: CALCIUM/VITAMIN D (500/200) TAB PO ×2 (08:23→17:44)
[2018-02-22] MEDS: BETHANECHOL 25 MG TAB PO ×3 (08:23→22:35)
[2018-02-22] MEDS: CLOPIDOGREL 75 MG TAB PO (08:23)
[2018-02-22] MEDS: ASCORBIC ACID 500 MG TAB PO ×2 (08:23→17:45)
[2018-02-22] MEDS: METOPROLOL (XL) 25 MG TAB PO ×3 (08:23→17:47)
[2018-02-22] MEDS: DICLOFENAC SODIUM 1% GEL 100 GM TUBE TP (08:24)
[2018-02-22] MEDS: LISINOPRIL 10 MG TAB PO ×2 (08:24→17:35)
[2018-02-22] MEDS: SALMETEROL/FLUTICASONE 250/50 INHA INH (08:25)
[2018-02-22] MEDS: metroNIDAZOLE 0.75% 45 GM GEL TOP (08:26)
[2018-02-22] MEDS: IPRATROPIUM (HFA) 12.9 GM INHALER INH (08:26)
[2018-02-22] MEDS: COLLAGENASE 30 GM TUBE TOP (08:26)
[2018-02-22] MEDS: MEDIHONEY TOP (08:27)
[2018-02-22] MEDS: MUPIROCIN 2% 22 GM OINT TOP ×2 (08:27→20:48)
[2018-02-22] MEDS: PROCHLORPERAZINE 5 MG TAB PO ×2 (08:34→17:53)
[2018-02-22] MEDS: GABAPENTIN 100 MG CAP PO ×3 (08:34→20:41)
[2018-02-22] MEDS: FERROUS SULFATE (EC) 325 MG TAB PO ×2 (08:34→20:41)
[2018-02-22] MEDS: HYDROCODONE/APAP (5/325) TAB PO (08:34)
[2018-02-22] MEDS: LORATADINE 10 MG TAB PO (09:08)
[2018-02-22] MEDS: LACTULOSE 30ML CUP PO (11:35)
[2018-02-22] MEDS: RALOXIFENE 60 MG TAB PO (17:52)
[2018-02-22] MEDS: MONTELUKAST 10 MG TAB PO (20:42)
[2018-02-22] MEDS: MOMETASONE 0.24 GM INHALER INH (20:46)
[2018-02-22] MEDS: SENNA TAB PO (21:00)
[2018-02-22] MEDS: CALCITONIN SALMON 3.7 ML NASAL SPRAY NASAL (21:00)
[2018-02-22 22:20] LABS: ADD UMIC YES; UR ASCORBIC ACID 40 mg/dL (NEGATIVE); UR BACTERIA MANY /HPF (NONE SEEN); UR BILIRUBIN (Dip) NEGATIVE (NEGATIVE); UR BLOOD (Dip) NEGATIVE (NEGATIVE); UR CALCIUM OXALATE CRYSTAL MANY /HPF (NONE SEEN); UR CLARITY CLOUDY (CLEAR); UR COLOR AMBER (YELLOW); UR GLUCOSE (Dip) NEGATIVE (NEGATIVE); UR KETONES (Dip) TRACE mg/dL (NEGATIVE); UR LEUKOCYTE ESTERASE (Dip) TRACE Leu/ul (NEGATIVE); UR MUCUS MODERATE /HPF (NONE SEEN); UR NITRITE (Dip) NEGATIVE (NEGATIVE); UR NONSQUAMOUS EPITHELIAL CELL 1 /HPF (NONE SEEN); UR RBC 3 /HPF (0-5); UR SPECIFIC GRAVITY (Dip) 1.027 (1.003-1.030); UR SQUAMOUS EPITHELIAL CELL MANY /HPF (FEW); UR TOTAL PROTEIN (Dip) 2+ mg/dl (NEGATIVE); UR UROBILINOGEN (Dip) NEGATIVE (NEGATIVE); UR WBC 9 /HPF (0-5)
[2018-02-23] MEDS: DIAZEPAM 5 MG TAB PO ×2 (00:32→23:55)
[2018-02-23] MEDS: PANTOPRAZOLE (EC) 40 MG TAB PO (06:29)
[2018-02-23 06:57] LABS: ADD MAN DIFF? NO
[2018-02-23 07:00] LABS: BASOPHIL # 0.1 10^3/ul (0.0-0.1); BASOPHILS % 0.9 % (0.0-2.0); EOSINOPHILS # 0.9 10^3/ul (0.0-0.5); EOSINOPHILS % 11.9 % (0.0-7.0); HEMATOCRIT 27.5 % (37.0-47.0); HEMOGLOBIN 9.3 g/dl (12.0-16.0); LYMPHOCYTES # 1.3 10^3/ul (0.8-2.9); LYMPHOCYTES % 17.2 % (15.0-51.0); MEAN CORPUSCULAR HEMOGLOBIN 31.6 pg (29.0-33.0); MEAN CORPUSCULAR HGB CONC 33.8 g/dl (32.0-37.0); MEAN CORPUSCULAR VOLUME 93.5 fl (82.0-101.0); MEAN PLATELET VOLUME 8.9 fl (7.4-10.4); MONOCYTE # 0.6 10^3/ul (0.3-0.9); MONOCYTES % 7.5 % (0.0-11.0); NEUTROPHIL # 4.6 10^3/ul (1.6-7.5); NEUTROPHILS % 61.6 % (39.0-77.0); PLATELET COUNT 666 10^3/UL (140-415); RED BLOOD COUNT 2.94 10^6/ul (4.20-5.40); RED CELL DISTRIBUTION WIDTH 14.2 % (11.5-14.5)
[2018-02-23 07:00] LABS: WHITE BLOOD COUNT 7.5 10^3/ul (4.8-10.8)
[2018-02-23 07:31] LABS: ALANINE AMINOTRANSFERASE 22 IU/L (13-69); ALBUMIN 3.7 g/dl (3.3-4.9); ALBUMIN/GLOBULIN RATIO 1.32; ALKALINE PHOSPHATASE 80 IU/L (42-121); ANION GAP 15 (8-16); ASPARTATE AMINO TRANSFERASE 19 IU/L (15-46); BLOOD UREA NITROGEN 24 mg/dl (7-20); CALCIUM 9.5 mg/dl (8.4-10.2); CARBON DIOXIDE 27 mmol/L (21-31); CHLORIDE 102 mmol/L (97-110); CREATININE 0.53 mg/dl (0.44-1.00); GLUCOSE 89 mg/dl (70-220); POTASSIUM 4.2 mmol/L (3.5-5.1); SODIUM 140 mmol/L (135-144); TOTAL PROTEIN 6.5 g/dl (6.1-8.1)
[2018-02-23] MEDS: METOPROLOL (XL) 25 MG TAB PO ×2 (07:35→18:00)
[2018-02-23] MEDS: LISINOPRIL 10 MG TAB PO ×2 (07:35→17:58)
[2018-02-23] MEDS: BETHANECHOL 25 MG TAB PO ×3 (08:54→22:12)
[2018-02-23] MEDS: ASPIRIN 81 MG TAB PO (08:56)
[2018-02-23] MEDS: DICLOFENAC SODIUM 1% GEL 100 GM TUBE TP (08:56)
[2018-02-23] MEDS: FERROUS SULFATE (EC) 325 MG TAB PO ×2 (08:56→17:58)
[2018-02-23] MEDS: metroNIDAZOLE 0.75% 45 GM GEL TOP (08:56)
[2018-02-23] MEDS: PROCHLORPERAZINE 5 MG TAB PO (08:57)
[2018-02-23] MEDS: CLOPIDOGREL 75 MG TAB PO (08:57)
[2018-02-23] MEDS: CELECOXIB 100 MG CAP PO (08:57)
[2018-02-23] MEDS: CALCIUM/VITAMIN D (500/200) TAB PO ×2 (08:57→17:58)
[2018-02-23] MEDS: LORATADINE 10 MG TAB PO (08:58)
[2018-02-23] MEDS: HYDROCODONE/APAP (5/325) TAB PO (08:58)
[2018-02-23] MEDS: IPRATROPIUM (HFA) 12.9 GM INHALER INH ×2 (08:58→21:58)
[2018-02-23] MEDS: ASCORBIC ACID 500 MG TAB PO ×2 (08:58→17:58)
[2018-02-23] MEDS: DOCUSATE SODIUM 100 MG CAP PO ×3 (08:58→22:00)
[2018-02-23] MEDS: MEDIHONEY TOP (08:59)
[2018-02-23] MEDS: MUPIROCIN 2% 22 GM OINT TOP ×2 (08:59→22:03)
[2018-02-23] MEDS: COLLAGENASE 30 GM TUBE TOP (09:00)
[2018-02-23] MEDS: LACTOBACILLUS RHAMNOSUS CAP PO (09:04)
[2018-02-23] MEDS: GABAPENTIN 100 MG CAP PO ×3 (09:07→22:00)
[2018-02-23] MEDS: SALMETEROL/FLUTICASONE 250/50 INHA INH (09:08)
[2018-02-23] MEDS: RALOXIFENE 60 MG TAB PO (17:58)
[2018-02-23] MEDS: ESTRADIOL 0.05 MG/24 HR TOP (21:00)
[2018-02-23] MEDS: SENNA TAB PO (21:00)
[2018-02-23] MEDS: MOMETASONE 0.24 GM INHALER INH (21:58)
[2018-02-23] MEDS: MONTELUKAST 10 MG TAB PO (22:00)
[2018-02-23] MEDS: CALCITONIN SALMON 3.7 ML NASAL SPRAY NASAL (22:02)
[2018-02-24] MEDS: PANTOPRAZOLE (EC) 40 MG TAB PO (06:56)
[2018-02-24] MEDS: SALMETEROL/FLUTICASONE 250/50 INHA INH (08:20)
[2018-02-24] MEDS: IPRATROPIUM (HFA) 12.9 GM INHALER INH ×2 (08:21→21:14)
[2018-02-24] MEDS: CLOPIDOGREL 75 MG TAB PO (08:25)
[2018-02-24] MEDS: PROCHLORPERAZINE 5 MG TAB PO ×2 (08:25→17:50)
[2018-02-24] MEDS: HYDROCODONE/APAP (5/325) TAB PO ×2 (08:26→12:46)
[2018-02-24] MEDS: ASPIRIN 81 MG TAB PO (08:26)
[2018-02-24] MEDS: LORATADINE 10 MG TAB PO (08:26)
[2018-02-24] MEDS: CELECOXIB 100 MG CAP PO (08:27)
[2018-02-24] MEDS: BETHANECHOL 25 MG TAB PO ×3 (08:27→21:11)
[2018-02-24] MEDS: DOCUSATE SODIUM 100 MG CAP PO ×3 (08:27→21:11)
[2018-02-24] MEDS: ASCORBIC ACID 500 MG TAB PO ×2 (08:27→17:47)
[2018-02-24] MEDS: LACTOBACILLUS RHAMNOSUS CAP PO (08:27)
[2018-02-24] MEDS: CALCIUM/VITAMIN D (500/200) TAB PO ×2 (08:27→17:46)
[2018-02-24] MEDS: MUPIROCIN 2% 22 GM OINT TOP (08:29)
[2018-02-24] MEDS: LISINOPRIL 10 MG TAB PO ×2 (08:30→17:35)
[2018-02-24] MEDS: METOPROLOL (XL) 25 MG TAB PO ×2 (08:30→17:35)
[2018-02-24] MEDS: DICLOFENAC SODIUM 1% GEL 100 GM TUBE TP (08:34)
[2018-02-24] MEDS: MEDIHONEY TOP (08:35)
[2018-02-24] MEDS: metroNIDAZOLE 0.75% 45 GM GEL TOP (08:35)
[2018-02-24] MEDS: COLLAGENASE 30 GM TUBE TOP (08:35)
[2018-02-24] MEDS: GABAPENTIN 100 MG CAP PO ×3 (08:36→21:11)
[2018-02-24] MEDS: FERROUS SULFATE (EC) 325 MG TAB PO ×2 (08:36→17:46)
[2018-02-24] MEDS: ESTRADIOL 0.05 MG/24 HR TOP (15:42)
[2018-02-24] MEDS: RALOXIFENE 60 MG TAB PO (17:47)
[2018-02-24] MEDS: MONTELUKAST 10 MG TAB PO (21:11)
[2018-02-24] MEDS: MOMETASONE 0.24 GM INHALER INH (21:11)
[2018-02-24] MEDS: SENNA TAB PO (21:20)
[2018-02-25] MEDS: DIAZEPAM 5 MG TAB PO (00:04)
[2018-02-25] MEDS: GABAPENTIN 100 MG CAP PO ×3 (00:04→17:42)
[2018-02-25] MEDS: HYDROCODONE/APAP (5/325) TAB PO ×2 (01:36→08:43)
[2018-02-25] MEDS: DIPHENHYDRAMINE 50 MG CAP PO (01:43)
[2018-02-25] MEDS: PANTOPRAZOLE (EC) 40 MG TAB PO (06:19)
[2018-02-25] MEDS: CLOPIDOGREL 75 MG TAB PO (08:42)
[2018-02-25] MEDS: CALCIUM/VITAMIN D (500/200) TAB PO ×2 (08:42→17:42)
[2018-02-25] MEDS: METOPROLOL (XL) 25 MG TAB PO ×2 (08:42→17:08)
[2018-02-25] MEDS: ASPIRIN 81 MG TAB PO (08:42)
[2018-02-25] MEDS: CELECOXIB 100 MG CAP PO (08:43)
[2018-02-25] MEDS: PROCHLORPERAZINE 5 MG TAB PO (08:43)
[2018-02-25] MEDS: LACTOBACILLUS RHAMNOSUS CAP PO (08:43)
[2018-02-25] MEDS: LORATADINE 10 MG TAB PO (08:43)
[2018-02-25] MEDS: BETHANECHOL 25 MG TAB PO ×3 (08:43→20:48)
[2018-02-25] MEDS: LISINOPRIL 10 MG TAB PO ×2 (08:43→17:08)
[2018-02-25] MEDS: ASCORBIC ACID 500 MG TAB PO ×2 (08:43→17:42)
[2018-02-25] MEDS: metroNIDAZOLE 0.75% 45 GM GEL TOP (08:44)
[2018-02-25] MEDS: IPRATROPIUM (HFA) 12.9 GM INHALER INH ×2 (08:44→20:51)
[2018-02-25] MEDS: SALMETEROL/FLUTICASONE 250/50 INHA INH (08:44)
[2018-02-25] MEDS: DICLOFENAC SODIUM 1% GEL 100 GM TUBE TP (08:44)
[2018-02-25] MEDS: MEDIHONEY TOP (08:45)
[2018-02-25] MEDS: DOCUSATE SODIUM 100 MG CAP PO ×3 (08:46→20:48)
[2018-02-25] MEDS: FERROUS SULFATE (EC) 325 MG TAB PO ×2 (08:46→17:42)
[2018-02-25] MEDS: COLLAGENASE 30 GM TUBE TOP (08:47)
[2018-02-25] MEDS: RALOXIFENE 60 MG TAB PO (17:42)
[2018-02-25] MEDS: MONTELUKAST 10 MG TAB PO (20:48)
[2018-02-25] MEDS: MOMETASONE 0.24 GM INHALER INH (20:48)
[2018-02-25] MEDS: CALCITONIN SALMON 3.7 ML NASAL SPRAY NASAL (20:48)
[2018-02-25] MEDS: SENNA TAB PO (20:48)
[2018-02-26] MEDS: DIAZEPAM 5 MG TAB PO ×2 (00:17→23:55)
[2018-02-26] MEDS: GABAPENTIN 100 MG CAP PO ×4 (00:22→21:33)
[2018-02-26] MEDS: DIPHENHYDRAMINE 50 MG CAP PO (02:00)
[2018-02-26] MEDS: PANTOPRAZOLE (EC) 40 MG TAB PO (06:27)
[2018-02-26] MEDS: SALMETEROL/FLUTICASONE 250/50 INHA INH (08:29)
[2018-02-26] MEDS: MEDIHONEY TOP (08:30)
[2018-02-26] MEDS: DICLOFENAC SODIUM 1% GEL 100 GM TUBE TP (08:30)
[2018-02-26] MEDS: IPRATROPIUM (HFA) 12.9 GM INHALER INH (08:31)
[2018-02-26] MEDS: LACTULOSE 30ML CUP PO (08:35)
[2018-02-26] MEDS: PROCHLORPERAZINE 5 MG TAB PO ×2 (08:35→18:00)
[2018-02-26] MEDS: HYDROCODONE/APAP (5/325) TAB PO ×2 (08:36→12:56)
[2018-02-26] MEDS: LACTOBACILLUS RHAMNOSUS CAP PO (08:36)
[2018-02-26] MEDS: CLOPIDOGREL 75 MG TAB PO (08:37)
[2018-02-26] MEDS: ASPIRIN 81 MG TAB PO (08:37)
[2018-02-26] MEDS: ASCORBIC ACID 500 MG TAB PO ×2 (08:37→18:00)
[2018-02-26] MEDS: LORATADINE 10 MG TAB PO (08:37)
[2018-02-26] MEDS: DOCUSATE SODIUM 100 MG CAP PO ×3 (08:37→21:32)
[2018-02-26] MEDS: CALCIUM/VITAMIN D (500/200) TAB PO ×2 (08:38→18:01)
[2018-02-26] MEDS: BETHANECHOL 25 MG TAB PO ×3 (08:38→21:34)
[2018-02-26] MEDS: FERROUS SULFATE (EC) 325 MG TAB PO ×2 (08:38→18:00)
[2018-02-26] MEDS: CELECOXIB 100 MG CAP PO (08:38)
[2018-02-26] MEDS: METOPROLOL (XL) 25 MG TAB PO ×2 (08:45→17:35)
[2018-02-26] MEDS: LISINOPRIL 10 MG TAB PO ×2 (08:45→18:00)
[2018-02-26] MEDS: metroNIDAZOLE 0.75% 45 GM GEL TOP (08:49)
[2018-02-26] MEDS: COLLAGENASE 30 GM TUBE TOP (08:50)
[2018-02-26 10:38] LABS: ADD MAN DIFF? NO
[2018-02-26 10:40] LABS: BASOPHIL # 0.1 10^3/ul (0.0-0.1); BASOPHILS % 0.8 % (0.0-2.0); EOSINOPHILS # 0.9 10^3/ul (0.0-0.5); EOSINOPHILS % 11.2 % (0.0-7.0); HEMATOCRIT 33.1 % (37.0-47.0); HEMOGLOBIN 11.1 g/dl (12.0-16.0); LYMPHOCYTES # 1.5 10^3/ul (0.8-2.9); LYMPHOCYTES % 17.9 % (15.0-51.0); MEAN CORPUSCULAR HEMOGLOBIN 31.4 pg (29.0-33.0); MEAN CORPUSCULAR HGB CONC 33.5 g/dl (32.0-37.0); MEAN CORPUSCULAR VOLUME 93.5 fl (82.0-101.0); MEAN PLATELET VOLUME 8.9 fl (7.4-10.4); MONOCYTE # 0.7 10^3/ul (0.3-0.9); MONOCYTES % 7.9 % (0.0-11.0); NEUTROPHIL # 5.1 10^3/ul (1.6-7.5); NEUTROPHILS % 61.5 % (39.0-77.0); PLATELET COUNT 765 10^3/UL (140-415); RED BLOOD COUNT 3.54 10^6/ul (4.20-5.40); RED CELL DISTRIBUTION WIDTH 14.3 % (11.5-14.5)
[2018-02-26 10:40] LABS: WHITE BLOOD COUNT 8.3 10^3/ul (4.8-10.8)
[2018-02-26] MEDS: FUROSEMIDE 20 MG TAB PO (10:48)
[2018-02-26 10:56] LABS: ANION GAP 21 (8-16); BLOOD UREA NITROGEN 20 mg/dl (7-20); CALCIUM 9.7 mg/dl (8.4-10.2); CARBON DIOXIDE 22 mmol/L (21-31); CHLORIDE 104 mmol/L (97-110); CREATININE 0.63 mg/dl (0.44-1.00); GLUCOSE 77 mg/dl (70-220); POTASSIUM 4.8 mmol/L (3.5-5.1); SODIUM 142 mmol/L (135-144)
[2018-02-26] MEDS: RALOXIFENE 60 MG TAB PO (18:01)
[2018-02-26] MEDS: MOMETASONE 0.24 GM INHALER INH (21:32)
[2018-02-26] MEDS: CALCITONIN SALMON 3.7 ML NASAL SPRAY NASAL (21:32)
[2018-02-26] MEDS: MONTELUKAST 10 MG TAB PO (21:33)
[2018-02-26] MEDS: SENNA TAB PO (21:33)
[2018-02-27] MEDS: DIPHENHYDRAMINE 50 MG CAP PO (02:32)
[2018-02-27] MEDS: PANTOPRAZOLE (EC) 40 MG TAB PO (06:01)
[2018-02-27 07:09] LABS: ADD MAN DIFF? NO
[2018-02-27 07:14] LABS: WHITE BLOOD COUNT 6.4 10^3/ul (4.8-10.8)
[2018-02-27 07:15] LABS: BASOPHIL # 0.1 10^3/ul (0.0-0.1); BASOPHILS % 1.2 % (0.0-2.0); EOSINOPHILS # 0.9 10^3/ul (0.0-0.5); EOSINOPHILS % 14.1 % (0.0-7.0); HEMATOCRIT 29.7 % (37.0-47.0); HEMOGLOBIN 9.8 g/dl (12.0-16.0); LYMPHOCYTES # 1.3 10^3/ul (0.8-2.9); LYMPHOCYTES % 19.4 % (15.0-51.0); MEAN CORPUSCULAR HEMOGLOBIN 30.9 pg (29.0-33.0); MEAN CORPUSCULAR VOLUME 93.7 fl (82.0-101.0); MEAN PLATELET VOLUME 9.2 fl (7.4-10.4); MONOCYTE # 0.5 10^3/ul (0.3-0.9); MONOCYTES % 8.1 % (0.0-11.0); NEUTROPHIL # 3.6 10^3/ul (1.6-7.5); NEUTROPHILS % 56.6 % (39.0-77.0); PLATELET COUNT 615 10^3/UL (140-415); RED BLOOD COUNT 3.17 10^6/ul (4.20-5.40); RED CELL DISTRIBUTION WIDTH 14.6 % (11.5-14.5)
[2018-02-27 07:35] LABS: ANION GAP 15 (8-16); BLOOD UREA NITROGEN 20 mg/dl (7-20); CALCIUM 9.2 mg/dl (8.4-10.2); CARBON DIOXIDE 26 mmol/L (21-31); CHLORIDE 104 mmol/L (97-110); GLUCOSE 78 mg/dl (70-220); POTASSIUM 4.2 mmol/L (3.5-5.1); SODIUM 141 mmol/L (135-144)
[2018-02-27] MEDS: LISINOPRIL 10 MG TAB PO ×2 (08:30→17:35)
[2018-02-27] MEDS: METOPROLOL (XL) 25 MG TAB PO ×2 (08:30→17:35)
[2018-02-27] MEDS: FERROUS SULFATE (EC) 325 MG TAB PO ×2 (09:00→17:48)
[2018-02-27] MEDS: metroNIDAZOLE 0.75% 45 GM GEL TOP (09:00)
[2018-02-27] MEDS: COLLAGENASE 30 GM TUBE TOP (09:00)
[2018-02-27] MEDS: CELECOXIB 100 MG CAP PO (09:02)
[2018-02-27] MEDS: BETHANECHOL 25 MG TAB PO ×3 (09:03→20:33)
[2018-02-27] MEDS: CLOPIDOGREL 75 MG TAB PO (09:03)
[2018-02-27] MEDS: DOCUSATE SODIUM 100 MG CAP PO ×3 (09:03→20:33)
[2018-02-27] MEDS: CALCIUM/VITAMIN D (500/200) TAB PO ×2 (09:03→17:44)
[2018-02-27] MEDS: LORATADINE 10 MG TAB PO (09:04)
[2018-02-27] MEDS: HYDROCODONE/APAP (5/325) TAB PO ×2 (09:04→12:47)
[2018-02-27] MEDS: ASPIRIN 81 MG TAB PO (09:04)
[2018-02-27] MEDS: LACTOBACILLUS RHAMNOSUS CAP PO (09:04)
[2018-02-27] MEDS: ASCORBIC ACID 500 MG TAB PO ×2 (09:04→17:44)
[2018-02-27] MEDS: IPRATROPIUM (HFA) 12.9 GM INHALER INH (09:05)
[2018-02-27] MEDS: MEDIHONEY TOP (09:05)
[2018-02-27] MEDS: DICLOFENAC SODIUM 1% GEL 100 GM TUBE TP (09:05)
[2018-02-27] MEDS: SALMETEROL/FLUTICASONE 250/50 INHA INH (09:05)
[2018-02-27] MEDS: GABAPENTIN 100 MG CAP PO ×3 (09:09→20:34)
[2018-02-27] MEDS: PROCHLORPERAZINE 5 MG TAB PO ×2 (09:09→17:45)
[2018-02-27] MEDS: FUROSEMIDE 20 MG TAB PO (10:19)
[2018-02-27] MEDS: BETAMETHASONE/CLOTRIMAZOLE 15 GM CR TOP ×2 (12:45→20:34)
[2018-02-27] MEDS: RALOXIFENE 60 MG TAB PO (17:44)
[2018-02-27] MEDS: CALCITONIN SALMON 3.7 ML NASAL SPRAY NASAL (20:33)
[2018-02-27] MEDS: ESTRADIOL 0.05 MG/24 HR TOP (20:34)
[2018-02-27] MEDS: MOMETASONE 0.24 GM INHALER INH (20:34)
[2018-02-27] MEDS: MONTELUKAST 10 MG TAB PO (20:34)
[2018-02-27] MEDS: SENNA TAB PO (20:34)
[2018-02-28] MEDS: DIAZEPAM 5 MG TAB PO (01:21)
[2018-02-28] MEDS: FUROSEMIDE 20 MG TAB PO (05:25)
[2018-02-28] MEDS: PANTOPRAZOLE (EC) 40 MG TAB PO (05:25)
[2018-02-28] MEDS: PROCHLORPERAZINE 5 MG TAB PO (08:36)
[2018-02-28] MEDS: METOPROLOL (XL) 25 MG TAB PO (08:36)
[2018-02-28] MEDS: FERROUS SULFATE (EC) 325 MG TAB PO (08:37)
[2018-02-28] MEDS: CELECOXIB 100 MG CAP PO (08:37)
[2018-02-28] MEDS: ASCORBIC ACID 500 MG TAB PO (08:37)
[2018-02-28] MEDS: GABAPENTIN 100 MG CAP PO (08:37)
[2018-02-28] MEDS: ASPIRIN 81 MG TAB PO (08:37)
[2018-02-28] MEDS: LISINOPRIL 10 MG TAB PO (08:37)
[2018-02-28] MEDS: DOCUSATE SODIUM 100 MG CAP PO (08:37)
[2018-02-28] MEDS: HYDROCODONE/APAP (5/325) TAB PO (08:37)
[2018-02-28] MEDS: LORATADINE 10 MG TAB PO (08:37)
[2018-02-28] MEDS: BETHANECHOL 25 MG TAB PO (08:38)
[2018-02-28] MEDS: CLOPIDOGREL 75 MG TAB PO (08:38)
[2018-02-28] MEDS: CALCIUM/VITAMIN D (500/200) TAB PO (08:38)
[2018-02-28] MEDS: metroNIDAZOLE 0.75% 45 GM GEL TOP (08:38)
[2018-02-28] MEDS: IPRATROPIUM (HFA) 12.9 GM INHALER INH (08:38)
[2018-02-28] MEDS: SALMETEROL/FLUTICASONE 250/50 INHA INH (08:38)
[2018-02-28] MEDS: BETAMETHASONE/CLOTRIMAZOLE 15 GM CR TOP (08:38)
[2018-02-28] MEDS: LACTOBACILLUS RHAMNOSUS CAP PO (08:38)
[2018-02-28] MEDS: DICLOFENAC SODIUM 1% GEL 100 GM TUBE TP (08:39)
[2018-02-28] MEDS: MEDIHONEY TOP (08:39)
[2018-02-28] MEDS: COLLAGENASE 30 GM TUBE TOP (08:39)
== END 2018-02-28 11:00 | disposition home health service (06) | DRG 560 ==
LOC: VRC 02-14 11:42
PROC: F07Z5ZZ Bed Mobility Treatment (ICD-10-PCS; principal; 2018-02-12)
PROC: F08Z2ZZ Grooming/Personal Hygiene Treatment (ICD-10-PCS; 2018-02-12)
DX: Z47.1 Aftercare following joint replacement surgery (principal); E22.2 Syndrome of inappropriate secretion of antidiuretic hormone; E87.1 Hypo-osmolality and hyponatremia; Z96.642 Presence of left artificial hip joint; S72.002D Fracture of unspecified part of neck of left femur, subsequent encounter for closed fracture with routine healing; M97.02XD Periprosthetic fracture around internal prosthetic left hip joint, subsequent encounter; G89.18 Other acute postprocedural pain; L89.522 Pressure ulcer of left ankle, stage 2; J45.909 Unspecified asthma, uncomplicated; I10 Essential (primary) hypertension; M81.0 Age-related osteoporosis without current pathological fracture; Z90.710 Acquired absence of both cervix and uterus; E83.42 Hypomagnesemia; D64.9 Anemia, unspecified; Z79.82 Long term (current) use of aspirin; G62.9 Polyneuropathy, unspecified; F06.31 Mood disorder due to known physiological condition with depressive features; Z86.73 Personal history of transient ischemic attack (TIA), and cerebral infarction without residual deficits; W18.30XD Fall on same level, unspecified, subsequent encounter
CPT/HCPCS: 80048; 80053; 81001; 83735; 84100; 85025; 87081; 87086; 97110; 97112; 97116; 97150; 97163; 97167; 97530; 97535